=== PATIENT | female | born 1990 | race Caucasian/White ===

== ENCOUNTER 2018-06-14 13:22 | Emergency (ER) | payer MEDICAID ==
[~2018-06-14] VITALS: Ht 162.6 cm; Wt 59.0 kg
[~2018-06-14 13:22] MED LIST: ARIP5TAB49 PO; FURO40TA4 PO; GLUC1KIT2 SUBCUT; INSU100C10 SQ; LABE100T5 PO; LANTUS SQ; LURA60TA2 PO; LYR25C PO; PANT-47 PO; TRAZ-218 PO; VENL-190 PO
[2018-06-14 14:28] LABS: BASOPHILS % (AUTO) 0.3 % (0-1); EOSINOPHILS # (AUTO) 0.1 X10'3 (0-0.9); EOSINOPHILS % (AUTO) 0.5 % (0-6); HEMOGLOBIN 12.3 g/dl (12.0-16.0); LYMPHOCYTES # (AUTO) 2.7 X10'3 (1.1-4.8); LYMPHOCYTES % (AUTO) 19.2 % (21-51); MEAN CORPUSCULAR HGB CONC 33.2 g/dL (33.0-36.5); MEAN CORPUSCULAR VOLUME 87.5 FL (78-98); MEAN PLATELET VOLUME 8.1 FL (7.4-10.4); MONOCYTES # (AUTO) 0.8 X10'3 (0-0.9); MONOCYTES % (AUTO) 5.5 % (2-12); NEUTROPHILS # (AUTO) 10.6 X10'3 (1.8-7.7); NEUTROPHILS % (AUTO) 74.5 % (42-75); PLATELET COUNT 313 X10'3 (140-440); RED BLOOD COUNT 4.22 X10'6 (4.20-5.60); RED CELL DISTRIBUTION WIDTH 15.7 % (11.5-14.5); WHITE BLOOD COUNT 14.2 X10'3 (4.5-11.0)
[2018-06-14 14:37] LABS: CLARITY,URINE CLEAR (Clear); COLOR,URINE YELLOW (Yellow); GLUCOSE, URINE >=1000 mg/dl (Neg); KETONES,URINE TRACE mg/dl (Neg); LEUKOCYTE ESTERASE ,URINE NEGATIVE (Neg); NITRITES, URINE NEGATIVE (Neg); OCCULT BLOOD,URINE NEGATIVE (Neg); PROTEIN,URINE NEGATIVE (Neg)
[2018-06-14 14:38] LABS: URINE HCG NEGATIVE (NEG)
[2018-06-14 14:43] LABS: UA COLLECTION TYPE CLN CATCH MIDSTREAM
[2018-06-14 14:45] LABS: ALANINE AMINOTRANSFERASE 20 U/L (12-78); ALKALINE PHOSPHATASE 103 IU/L (46-116); ANION GAP 12 (8-16); ASPARTATE AMINO TRANSFERASE 13 U/L (10-37); BILIRUBIN,TOTAL 0.3 MG/DL (0.1-1.0); BLOOD UREA NITROGEN 10 MG/DL (7-18); CALCIUM 9.3 MG/DL (8.5-10.1); CHLORIDE 97 MMOL/L (99-107); CREATININE 0.83 MG/DL (0.40-0.90); GLUCOSE 248 MG/DL (70-104); MAGNESIUM 1.7 MG/DL (1.5-2.4); POTASSIUM 3.5 MMOL/L (3.5-5.1); SODIUM 135 MMOL/L (135-145); TOTAL CARBON DIOXIDE 26.2 MMOL/L (24-32); eGFR 81 ML/MIN
[2018-06-14 14:47] LABS: BACTERIA,URINE NONE SEEN /HPF (Neg); RBC,URINE NONE SEEN /HPF (0-2); SQUAMOUS EPITHELIAL CELL,UR FEW /LPF (FEW); WBC,URINE NONE SEEN /HPF (0-4)
[2018-06-14 15:01] LABS: PARTIAL THROMBOPLASTIN TIME 29 SECONDS (22-32); PROTHROMBIN TIME 9.8 SECONDS (9.0-12.0)
[2018-06-14] MEDS ORDERED: pregabalin 75mg capsule PO ONE (15:25)
[2018-06-14] MEDS ORDERED: normal saline 1000ML IV soln IVB ONE (15:30)
[2018-06-14] MEDS ORDERED: HYDR-3973 PO (15:34)
[2018-06-14] MEDS ORDERED: DULO30CA51 PO (15:34)
[2018-06-14] MEDS ORDERED: INSU100I31 SUBCUT (15:34)
[2018-06-14] MEDS ORDERED: DULO60CA64 PO (15:34)
[2018-06-14] MEDS ORDERED: AMIT-189 PO (15:34)
[2018-06-14] MEDS ORDERED: LAMO100T89 PO (15:38)
[2018-06-14] MEDS ORDERED: LURA60TA2 PO (15:39)
[2018-06-14] MEDS ORDERED: ARIP20TA4 PO (15:40)
[2018-06-14 15:48] VITALS: BP 102/61
[2018-06-14] MEDS ORDERED: piperacillin/tazo 3.375gm/50ml 50 ML IV ONE (16:15)
[2018-06-14] MEDS ORDERED: HYDROcodone/acetaminophen 5mg/325mg tablet PO ONE (16:25)
[2018-06-14] MEDS ORDERED: LYR75C PO (16:57)
[2018-06-14] MEDS ORDERED: CEPH-572 PO (16:57)
[2018-06-14] MEDS ORDERED: SULF1TAB49 PO (16:57)
[2018-06-14] MEDS ORDERED: LIDOcaine Viscous 15ml cup MM PRN (18:30)
[2018-06-14] MEDS ORDERED: ibuprofen 100 MG/5 ML oral susp PO ONE (18:30)
== END 2018-06-14 17:34 | disposition home or self-care (01) ==
LOC: ER 13:23
DX: L02.11 Cutaneous abscess of neck (principal); L03.221 Cellulitis of neck; E10.40 Type 1 diabetes mellitus with diabetic neuropathy, unspecified; Z90.89 Acquired absence of other organs; Z79.4 Long term (current) use of insulin; Z79.899 Other long term (current) drug therapy; Z88.8 Allergy status to other drugs, medicaments and biological substances
CPT/HCPCS: 36415; 71045; 80053; 81001; 81025; 82948; 83605; 83735; 84145; 85025; 85610; 85730; 87040; 93005; 96361; 96365; 99284; J2543; J7030

== ENCOUNTER 2018-06-16 10:03 | Emergency (ER) | payer MEDICAID ==
[~2018-06-16] VITALS: Ht 162.6 cm; Wt 54.5 kg
[~2018-06-16 10:03] MED LIST changes: +AMIT-189 PO; +ARIP20TA4 PO; -ARIP5TAB49 PO; +CEPH-572 PO; +DULO30CA51 PO; +DULO60CA64 PO; -FURO40TA4 PO; +HYDR-3973 PO; +INSU100I31 SUBCUT; -LABE100T5 PO; +LAMO100T89 PO; -LANTUS SQ; +LYR75C PO; -PANT-47 PO; +SULF1TAB49 PO; -TRAZ-218 PO; -VENL-190 PO
[2018-06-16 11:28] LABS: BASOPHILS % (AUTO) 0.3 % (0-1); EOSINOPHILS % (AUTO) 0.5 % (0-6); HEMATOCRIT 39.1 % (35.0-45.0); HEMOGLOBIN 12.9 g/dl (12.0-16.0); LYMPHOCYTES # (AUTO) 0.8 X10'3 (1.1-4.8); LYMPHOCYTES % (AUTO) 8.5 % (21-51); MEAN CORPUSCULAR HEMOGLOBIN 29.2 PG (27.0-31.0); MEAN CORPUSCULAR HGB CONC 33.1 g/dL (33.0-36.5); MEAN PLATELET VOLUME 8.3 FL (7.4-10.4); MONOCYTES # (AUTO) 0.4 X10'3 (0-0.9); MONOCYTES % (AUTO) 4.1 % (2-12); NEUTROPHILS # (AUTO) 8.1 X10'3 (1.8-7.7); NEUTROPHILS % (AUTO) 86.6 % (42-75); PLATELET COUNT 276 X10'3 (140-440); RED BLOOD COUNT 4.44 X10'6 (4.20-5.60); RED CELL DISTRIBUTION WIDTH 15.7 % (11.5-14.5); WHITE BLOOD COUNT 9.4 X10'3 (4.5-11.0)
[2018-06-16 11:36] LABS: PROTHROMBIN TIME 9.8 SECONDS (9.0-12.0)
[2018-06-16 11:37] LABS: PARTIAL THROMBOPLASTIN TIME 32 SECONDS (22-32)
[2018-06-16 11:40] LABS: ALANINE AMINOTRANSFERASE 19 U/L (12-78); ALBUMIN 3.9 G/DL (3.4-5.0); ALBUMIN/GLOBULIN RATIO 0.8 (1.1-1.5); ALKALINE PHOSPHATASE 108 IU/L (46-116); ANION GAP 12 (8-16); BILIRUBIN,TOTAL 0.3 MG/DL (0.1-1.0); BLOOD UREA NITROGEN 7 MG/DL (7-18); BUN/CREATININE RATIO 8.4 (6.6-38.0); CALCIUM 9.5 MG/DL (8.5-10.1); CHLORIDE 100 MMOL/L (99-107); CREATININE 0.83 MG/DL (0.40-0.90); GLUCOSE 391 MG/DL (70-104); POTASSIUM 3.9 MMOL/L (3.5-5.1); SODIUM 136 MMOL/L (135-145); TOTAL CARBON DIOXIDE 24.4 MMOL/L (24-32); TOTAL PROTEIN 8.5 G/DL (6.4-8.2); eGFR 81 ML/MIN
[2018-06-16 11:42] LABS: ASPARTATE AMINO TRANSFERASE 15 U/L (10-37)
[2018-06-16] MEDS ORDERED: LIDOcaine 1% w/epiNEPHrine 1:200,000 30ml vial IM ONE (12:15)
[2018-06-16] MEDS ORDERED: morphine 4 MG/ML inj SYRINge IV ONE (12:40)
[2018-06-16] MEDS ORDERED: ondansetron/PF 4mg/2ml inj IV ONE (12:40)
[2018-06-16 13:41] VITALS: BP 116/81
== END 2018-06-16 13:45 | disposition home or self-care (01) ==
LOC: ER 10:03
DX: L02.11 Cutaneous abscess of neck (principal); H92.01 Otalgia, right ear; E11.9 Type 2 diabetes mellitus without complications; Z79.4 Long term (current) use of insulin; Z88.8 Allergy status to other drugs, medicaments and biological substances
CPT/HCPCS: 10060; 36415; 80053; 83605; 84145; 85025; 85610; 85730; 87040; 96374; 96375; 99283; J2270; J2405; J3490

== ENCOUNTER 2019-06-06 17:26 | Inpatient (IN) | payer MEDICAID ==
[~2019-06-06] VITALS: Ht 264.2 cm; Wt 59.0 kg
[~2019-06-06 17:26] MED LIST changes: -CEPH-572 PO; -DULO30CA51 PO; +DULO30CA52 PO; -DULO60CA64 PO; +DULO60CA65 PO; +LAMO100T PO; -LAMO100T89 PO; -SULF1TAB49 PO
[2019-06-06] MEDS ORDERED: normal saline 1000ML IV soln IVB ONE (18:50)
[2019-06-06] MEDS ORDERED: ondansetron/PF 4mg/2ml inj IV ONE (18:50)
[2019-06-06] MEDS ORDERED: pantoprazole 40 MG vial IV ONE (18:50)
[2019-06-06 19:10] LABS: BASOPHILS % (AUTO) 0.2 % (0-1); EOSINOPHILS % (AUTO) 0 % (0-6); HEMATOCRIT 39.3 % (35.0-45.0); HEMOGLOBIN 12.9 g/dl (12.0-16.0); LYMPHOCYTES # (AUTO) 0.9 X10'3 (1.1-4.8); LYMPHOCYTES % (AUTO) 4.5 % (21-51); MEAN CORPUSCULAR HEMOGLOBIN 29.3 PG (27.0-31.0); MEAN CORPUSCULAR HGB CONC 32.7 g/dL (33.0-36.5); MEAN CORPUSCULAR VOLUME 89.5 FL (78-98); MEAN PLATELET VOLUME 8.3 FL (7.4-10.4); MONOCYTES # (AUTO) 0.2 X10'3 (0-0.9); MONOCYTES % (AUTO) 1.1 % (2-12); NEUTROPHILS % (AUTO) 94.2 % (42-75); PLATELET COUNT 377 X10'3 (140-440); RED BLOOD COUNT 4.39 X10'6 (4.20-5.60); RED CELL DISTRIBUTION WIDTH 15.6 % (11.5-14.5); WHITE BLOOD COUNT 21.2 X10'3 (4.5-11.0)
[2019-06-06 19:25] LABS: ALANINE AMINOTRANSFERASE 26 U/L (12-78); ALBUMIN 4.8 G/DL (3.4-5.0); ALBUMIN/GLOBULIN RATIO 1.2 (1.1-1.5); ALKALINE PHOSPHATASE 133 IU/L (46-116); ANION GAP 27 (8-16); ASPARTATE AMINO TRANSFERASE 20 U/L (10-37); BILIRUBIN,TOTAL 0.5 MG/DL (0.1-1.0); BLOOD UREA NITROGEN 18 MG/DL (7-18); BUN/CREATININE RATIO 13.8 (6.6-38.0); CALCIUM 9.9 MG/DL (8.5-10.1); CHLORIDE 98 MMOL/L (99-107); LIPASE < 50 U/L (73-393); POTASSIUM 5.4 MMOL/L (3.5-5.1); SODIUM 134 MMOL/L (135-145); TOTAL PROTEIN 8.9 G/DL (6.4-8.2); eGFR 48 ML/MIN
[2019-06-06 19:26] LABS: GLUCOSE 544 MG/DL (70-104); TOTAL CARBON DIOXIDE 8.7 MMOL/L (24-32)
[2019-06-06 19:26] LABS: ABG BASE EXCESS -20.4 mmol/L (-2.0-3.0); ABG HCO3 6.1 mmol/L (22.0-26.0); ABG OXYGEN SATURATION 97.2 % (95-98); ABG PCO2 (T) 17.3 mmHg (35.0-45.0); ABG PH (T) 7.165 (7.350-7.450); ABG PO2 (T) 107.1 mmHg (83-108); ALLEN'S TEST POSITIVE; FCOHb 0.4 % (0.5-1.5); FMetHb 0.1 % (0.3-1.12); FO2Hb 96.7 % (94-100); TOTAL HEMOGLOBIN 12.8 G/dl (12.0-16.0)
[2019-06-06] MEDS ORDERED: Insulin Reg/NS 100units/100mL 100 ML IV PRN (20:07)
[2019-06-06] MEDS ORDERED: Insulin Reg/NS 100units/100mL 100 ML IV SCH (20:26)
[2019-06-06] MEDS ORDERED: sodium bicarbonate (8.4%) inj. 100 MEQ in dextrose 5% water 500ml 500 ML IV PRN (20:26)
[2019-06-06] MEDS ORDERED: sodium bicarbonate (8.4%) inj. 50 MEQ in dextrose 5% water 500ml 250 ML IV PRN (20:26)
[2019-06-06] MEDS ORDERED: potassium CL 10mEq/100ml bag 100 ML IV PRN ×2 (20:30)
[2019-06-06] MEDS ORDERED: sodium phosphate inj. 15 MMOL in dextrose 5%-water 250 ML IV PRN (20:30)
[2019-06-06] MEDS ORDERED: sodium phosphate inj. 30 MMOL in dextrose 5%-water 250 ML IV PRN (20:30)
[2019-06-06] MEDS ORDERED: Neutra Phos packet PO PRN (20:30)
[2019-06-06] MEDS ORDERED: potassium Cl 20 mEq SR tablet PO PRN (20:30)
[2019-06-06] MEDS ORDERED: insulin regular, human U-100 3ml vial - multi-dose IV PRN (20:30)
[2019-06-06 20:43] LABS: URINE HCG NEGATIVE (NEG)
[2019-06-06 20:45] LABS: CLARITY,URINE CLEAR (Clear); COLOR,URINE STRAW (Yellow); GLUCOSE, URINE 500 mg/dl (Neg); KETONES,URINE >=80 mg/dl (Neg); LEUKOCYTE ESTERASE ,URINE NEGATIVE (Neg); NITRITES, URINE NEGATIVE (Neg); OCCULT BLOOD,URINE SMALL (Neg); PH,URINE 5.5 (4.8-8.0); PROTEIN,URINE NEGATIVE (Neg); UROBILINOGEN,URINE 0.2 E.U/dL (0.2-1.0)
[2019-06-06] MEDS: normal saline 1000ml 1,000 ML IV SCH (20:49)
[2019-06-06 20:51] LABS: UA COLLECTION TYPE CLN CATCH MIDSTREAM
[2019-06-06 20:53] LABS: BACTERIA,URINE NONE SEEN /HPF (Neg); MUCUS STRANDS FEW /LPF (Neg); SQUAMOUS EPITHELIAL CELL,UR FEW /LPF (FEW); WBC,URINE NONE SEEN /HPF (0-4)
[2019-06-06] MEDS ORDERED: LURA40TA3 PO (22:36)
[2019-06-06 22:41] LABS: ALBUMIN 3.8 G/DL (3.4-5.0); ANION GAP 22 (8-16); BLOOD UREA NITROGEN 13 MG/DL (7-18); BUN/CREATININE RATIO 11.6 (6.6-38.0); CALCIUM 8.3 MG/DL (8.5-10.1); CHLORIDE 107 MMOL/L (99-107); CREATININE 1.12 MG/DL (0.40-0.90); GLUCOSE 320 MG/DL (70-104); POTASSIUM 4.8 MMOL/L (3.5-5.1); SODIUM 137 MMOL/L (135-145); eGFR 57 ML/MIN
[2019-06-06] MEDS ORDERED: magnesium hydroxide 30ml (MOM) UD suspension PO PRN (23:35)
[2019-06-06] MEDS ORDERED: normal saline 1000ml 1,000 ML IV SCH (23:35)
[2019-06-06] MEDS ORDERED: mag hydrox/Alum hydrox/simeth 30ml oral suspension PO PRN (23:35)
[2019-06-06] MEDS ORDERED: acetaminophen 325mg tablet PO PRN (23:35)
[2019-06-06] MEDS ORDERED: ondansetron/PF 4mg/2ml inj IV PRN (23:35)
[2019-06-06] MEDS ORDERED: morphine 2 MG/ML inj. syringe IV PRN (23:35)
[2019-06-06] MEDS ORDERED: pregabalin 75mg capsule PO ONE (23:40)
[2019-06-07] MEDS: potassium CL 20mEq in D5-1/2NS 1,000 ML IV PRN ×2 (00:15→06:27)
[2019-06-07] MEDS: normal saline 1000ml 1,000 ML IV SCH ×5 (00:26→23:30)
[2019-06-07 00:58] LABS: BASOPHILS % (AUTO) 0.2 % (0-1); EOSINOPHILS % (AUTO) 0 % (0-6); HEMATOCRIT 31.9 % (35.0-45.0); HEMOGLOBIN 10.7 g/dl (12.0-16.0); LYMPHOCYTES # (AUTO) 2.8 X10'3 (1.1-4.8); LYMPHOCYTES % (AUTO) 13.3 % (21-51); MEAN CORPUSCULAR HEMOGLOBIN 29.4 PG (27.0-31.0); MEAN CORPUSCULAR HGB CONC 33.5 g/dL (33.0-36.5); MEAN CORPUSCULAR VOLUME 87.9 FL (78-98); MEAN PLATELET VOLUME 7.6 FL (7.4-10.4); MONOCYTES # (AUTO) 0.5 X10'3 (0-0.9); MONOCYTES % (AUTO) 2.2 % (2-12); NEUTROPHILS # (AUTO) 17.4 X10'3 (1.8-7.7); NEUTROPHILS % (AUTO) 84.3 % (42-75); PLATELET COUNT 330 X10'3 (140-440); RED BLOOD COUNT 3.63 X10'6 (4.20-5.60); RED CELL DISTRIBUTION WIDTH 15.4 % (11.5-14.5); WHITE BLOOD COUNT 20.7 X10'3 (4.5-11.0)
[2019-06-07 01:15] LABS: ALBUMIN 3.4 G/DL (3.4-5.0); ANION GAP 16 (8-16); BLOOD UREA NITROGEN 13 MG/DL (7-18); BUN/CREATININE RATIO 12.3 (6.6-38.0); CALCIUM 7.8 MG/DL (8.5-10.1); CHLORIDE 106 MMOL/L (99-107); CREATININE 1.06 MG/DL (0.40-0.90); GLUCOSE 195 MG/DL (70-104); PHOSPHORUS 2.7 MG/DL (2.3-4.5); POTASSIUM 4.1 MMOL/L (3.5-5.1); SODIUM 134 MMOL/L (135-145); eGFR 60 ML/MIN
[2019-06-07 01:16] LABS: TOTAL CARBON DIOXIDE 11.9 MMOL/L (24-32)
[2019-06-07 03:19] LABS: ALBUMIN 3.3 G/DL (3.4-5.0); ANION GAP 14 (8-16); BLOOD UREA NITROGEN 10 MG/DL (7-18); BUN/CREATININE RATIO 9.8 (6.6-38.0); CALCIUM 8.2 MG/DL (8.5-10.1); CHLORIDE 108 MMOL/L (99-107); CREATININE 1.02 MG/DL (0.40-0.90); GLUCOSE 191 MG/DL (70-104); SODIUM 135 MMOL/L (135-145); eGFR 63 ML/MIN
[2019-06-07 03:22] LABS: TOTAL CARBON DIOXIDE 13.3 MMOL/L (24-32)
--- NOTE | 2019-06-07 06:20 | NUR ---
RN contacted lab, regenerator operator stated that a outside plant technician will be up to draw 0630 labs.
[2019-06-07 07:26] LABS: ALANINE AMINOTRANSFERASE 23 U/L (12-78); ALBUMIN 3.3 G/DL (3.4-5.0); ALBUMIN/GLOBULIN RATIO 1.1 (1.1-1.5); ALKALINE PHOSPHATASE 88 IU/L (46-116); ANION GAP 11 (8-16); ASPARTATE AMINO TRANSFERASE 27 U/L (10-37); BILIRUBIN,TOTAL 0.3 MG/DL (0.1-1.0); BLOOD UREA NITROGEN 8 MG/DL (7-18); CALCIUM 8.2 MG/DL (8.5-10.1); CHLORIDE 111 MMOL/L (99-107); CREATININE 0.89 MG/DL (0.40-0.90); GLUCOSE 142 MG/DL (70-104); PHOSPHORUS 1.8 MG/DL (2.3-4.5); POTASSIUM 3.9 MMOL/L (3.5-5.1); SODIUM 139 MMOL/L (135-145); TOTAL CARBON DIOXIDE 17.2 MMOL/L (24-32); TOTAL PROTEIN 6.4 G/DL (6.4-8.2); eGFR 74 ML/MIN
[2019-06-07 07:40] VITALS: BP 97/68
--- NOTE | 2019-06-07 07:41 | NUR ---
Patient in room PCU 3014 admitted from ED. I have received report from Luciano NASCIMENTO and had the opportunity to ask questions and assume patient care.
[2019-06-07] MEDS: K and/or MAG REPLACEMENT MC SCH ×2 (08:00→20:00)
[2019-06-07] MEDS: duloxetine 30mg CAPSULE.DR PO SCH ×2 (08:11)
[2019-06-07] MEDS: pregabalin 75mg capsule PO SCH ×2 (08:12→19:50)
[2019-06-07] MEDS: ARIPIPRAZOLE 10 MG TABLET PO SCH (08:12)
[2019-06-07] MEDS: HYDROcodone/acetaminophen 10/325mg tab PO PRN ×3 (08:13→22:34)
[2019-06-07] MEDS: heparin, porcine 5000 units/ml vial SQ SCH ×2 (08:14→19:50)
[2019-06-07 11:00] VITALS: BP 106/70
--- NOTE | 2019-06-07 11:15 | NUR ---
PAGER ID: [phone] MESSAGE: [id number] Navya Crane: Pt is on DKA protocol, Blood glucose is still dropping after D5 1/2NS running at max rate, do you want to change to D10 1/2NS as per protocol? thanks Edmundo
[2019-06-07 11:21] LABS: ALANINE AMINOTRANSFERASE 18 U/L (12-78); ALBUMIN 3.1 G/DL (3.4-5.0); ALKALINE PHOSPHATASE 81 IU/L (46-116); ANION GAP 8 (8-16); ASPARTATE AMINO TRANSFERASE 20 U/L (10-37); BILIRUBIN,TOTAL 0.3 MG/DL (0.1-1.0); BLOOD UREA NITROGEN 6 MG/DL (7-18); BUN/CREATININE RATIO 7.4 (6.6-38.0); CALCIUM 8.1 MG/DL (8.5-10.1); CHLORIDE 113 MMOL/L (99-107); CREATININE 0.81 MG/DL (0.40-0.90); GLUCOSE 75 MG/DL (70-104); POTASSIUM 3.7 MMOL/L (3.5-5.1); SODIUM 140 MMOL/L (135-145); TOTAL CARBON DIOXIDE 19.5 MMOL/L (24-32); TOTAL PROTEIN 6.3 G/DL (6.4-8.2); eGFR 82 ML/MIN
[2019-06-07] MEDS ORDERED: Potassium Cl inj 20 MEQ in DEXTROSE 10 % AND 0.45 % NACL 1,000 ML IV SCH (11:30)
[2019-06-07] MEDS: morphine 2 MG/ML inj. syringe IV PRN ×2 (11:48→20:03)
--- NOTE | 2019-06-07 11:54 | NUR ---
received orders to start hyperglycemia protocol per Dr. Donahue
[2019-06-07] MEDS ORDERED: glucagon, human recombinant 1mg kit SUBCUT PRN (11:55)
[2019-06-07] MEDS ORDERED: dextrose ORAL solution 15 GM/59 ML bottle PO PRN ×2 (11:55)
[2019-06-07] MEDS ORDERED: dextrose 50%-water 50ml dispensing syringe IV PRN ×2 (11:55)
[2019-06-07] MEDS ORDERED: MESSAGE TO PHARMACY PO ONE (11:55)
[2019-06-07 13:35] LABS: ALANINE AMINOTRANSFERASE 16 U/L (12-78); ALBUMIN 3.1 G/DL (3.4-5.0); ALKALINE PHOSPHATASE 82 IU/L (46-116); ANION GAP 15 (8-16); ASPARTATE AMINO TRANSFERASE 17 U/L (10-37); BILIRUBIN,TOTAL 0.3 MG/DL (0.1-1.0); BLOOD UREA NITROGEN 7 MG/DL (7-18); BUN/CREATININE RATIO 10.3 (6.6-38.0); CALCIUM 8.2 MG/DL (8.5-10.1); CHLORIDE 110 MMOL/L (99-107); CREATININE 0.68 MG/DL (0.40-0.90); GLUCOSE 112 MG/DL (70-104); POTASSIUM 3.6 MMOL/L (3.5-5.1); SODIUM 139 MMOL/L (135-145); TOTAL PROTEIN 6.3 G/DL (6.4-8.2); eGFR > 90 ML/MIN
[2019-06-07 13:37] LABS: TOTAL CARBON DIOXIDE 13.8 MMOL/L (24-32)
--- NOTE | 2019-06-07 14:00 | NUR ---
PAGER ID: [phone] MESSAGE: [id number] Navya Crane: KOREY CO2 is 13.8, was previously 19.5, pt is asymptomatic. thanks Edmundo
[2019-06-07] MEDS: insulin Lispro (HumaLOG) vial - multi-dose SQ SCH ×3 (14:12→18:55)
[2019-06-07 18:00] VITALS: BP 102/65
--- NOTE | 2019-06-07 18:13 | NUR ---
Problems reprioritized. Patient report given, questions answered & plan of care reviewed with Zeynep NASCIMENTO.
--- NOTE | 2019-06-07 18:30 | NUR ---
Patient in room PCU 3014. I have received report from PILY Wyatt and had the opportunity to ask questions and assume patient care.
[2019-06-07 20:24] LABS: ALANINE AMINOTRANSFERASE 24 U/L (12-78); ALBUMIN 3.3 G/DL (3.4-5.0); ALKALINE PHOSPHATASE 85 IU/L (46-116); ANION GAP 9 (8-16); ASPARTATE AMINO TRANSFERASE 23 U/L (10-37); BILIRUBIN,TOTAL 0.3 MG/DL (0.1-1.0); BLOOD UREA NITROGEN 6 MG/DL (7-18); BUN/CREATININE RATIO 7.7 (6.6-38.0); CALCIUM 8.8 MG/DL (8.5-10.1); CHLORIDE 111 MMOL/L (99-107); CREATININE 0.78 MG/DL (0.40-0.90); GLUCOSE 102 MG/DL (70-104); POTASSIUM 3.2 MMOL/L (3.5-5.1); SODIUM 141 MMOL/L (135-145); TOTAL CARBON DIOXIDE 20.6 MMOL/L (24-32); TOTAL PROTEIN 6.6 G/DL (6.4-8.2); eGFR 86 ML/MIN
[2019-06-07] MEDS ORDERED: lamoTRIgine 25mg tablet PO SCH (21:00)
[2019-06-07] MEDS ORDERED: lamoTRIgine 100mg tablet PO SCH (21:00)
[2019-06-07] MEDS ORDERED: insulin glargine (Lantus) pen - multi-dose SQ SCH (21:00)
[2019-06-07] MEDS ORDERED: lurasidone 20mg tablet PO SCH (21:00)
[2019-06-07] MEDS ORDERED: normal saline 1000ml 1,000 ML IV ONE (21:35)
[2019-06-07] MEDS ORDERED: magnesium 4gm in 100ml NS 100 ML IV PRN (21:35)
[2019-06-07] MEDS ORDERED: K and/or MAG REPLACEMENT MC SCH (21:35)
[2019-06-07] MEDS ORDERED: magnesium Cl slow-release 64mg tablet PO PRN (21:35)
[2019-06-07] MEDS: potassium Cl 20 mEq SR tablet PO PRN (21:36)
[2019-06-07 22:00] VITALS: BP 110/61
[2019-06-08] MEDS: potassium Cl 20 mEq SR tablet PO PRN (01:40)
[2019-06-08 02:00] VITALS: BP 115/62
[2019-06-08] MEDS: HYDROcodone/acetaminophen 10/325mg tab PO PRN (05:07)
[2019-06-08] MEDS: normal saline 1000ml 1,000 ML IV SCH (05:07)
[2019-06-08 06:00] VITALS: BP 123/70
[2019-06-08 06:10] LABS: BASOPHILS # (AUTO) 0.1 X10'3 (0-0.2); BASOPHILS % (AUTO) 0.5 % (0-1); EOSINOPHILS # (AUTO) 0.1 X10'3 (0-0.9); EOSINOPHILS % (AUTO) 0.9 % (0-6); HEMATOCRIT 30.8 % (35.0-45.0); HEMOGLOBIN 10.4 g/dl (12.0-16.0); LYMPHOCYTES # (AUTO) 4.1 X10'3 (1.1-4.8); LYMPHOCYTES % (AUTO) 34.7 % (21-51); MEAN CORPUSCULAR HEMOGLOBIN 29.5 PG (27.0-31.0); MEAN CORPUSCULAR HGB CONC 33.9 g/dL (33.0-36.5); MEAN PLATELET VOLUME 7.7 FL (7.4-10.4); MONOCYTES # (AUTO) 0.6 X10'3 (0-0.9); MONOCYTES % (AUTO) 5.4 % (2-12); NEUTROPHILS # (AUTO) 6.9 X10'3 (1.8-7.7); NEUTROPHILS % (AUTO) 58.5 % (42-75); PLATELET COUNT 268 X10'3 (140-440); RED BLOOD COUNT 3.54 X10'6 (4.20-5.60); RED CELL DISTRIBUTION WIDTH 16.3 % (11.5-14.5); WHITE BLOOD COUNT 11.9 X10'3 (4.5-11.0)
--- NOTE | 2019-06-08 06:15 | NUR ---
Problems reprioritized. Patient report given, questions answered & plan of care reviewed with PILY Wyatt.
--- NOTE | 2019-06-08 06:19 | NUR ---
Patient in room PCU 3014. I have received report from Zeynep NASCIMENTO and had the opportunity to ask questions and assume patient care.
[2019-06-08 06:30] LABS: ALANINE AMINOTRANSFERASE 18 U/L (12-78); ALBUMIN/GLOBULIN RATIO 0.9 (1.1-1.5); ALKALINE PHOSPHATASE 82 IU/L (46-116); ANION GAP 10 (8-16); ASPARTATE AMINO TRANSFERASE 21 U/L (10-37); BILIRUBIN,TOTAL 0.3 MG/DL (0.1-1.0); BLOOD UREA NITROGEN 5 MG/DL (7-18); BUN/CREATININE RATIO 7.9 (6.6-38.0); CALCIUM 8.5 MG/DL (8.5-10.1); CHLORIDE 110 MMOL/L (99-107); CREATININE 0.63 MG/DL (0.40-0.90); GLUCOSE 205 MG/DL (70-104); MAGNESIUM 1.5 MG/DL (1.5-2.4); PHOSPHORUS 1.8 MG/DL (2.3-4.5); POTASSIUM 3.8 MMOL/L (3.5-5.1); SODIUM 139 MMOL/L (135-145); TOTAL CARBON DIOXIDE 19.4 MMOL/L (24-32); TOTAL PROTEIN 6.3 G/DL (6.4-8.2); eGFR > 90 ML/MIN
[2019-06-08] MEDS: duloxetine 30mg CAPSULE.DR PO SCH ×2 (07:12→07:13)
[2019-06-08] MEDS: ARIPIPRAZOLE 10 MG TABLET PO SCH (07:12)
[2019-06-08] MEDS: heparin, porcine 5000 units/ml vial SQ SCH (07:14)
[2019-06-08] MEDS: pregabalin 75mg capsule PO SCH (07:15)
[2019-06-08] MEDS: K and/or MAG REPLACEMENT MC SCH (07:55)
--- NOTE | 2019-06-08 08:19 | NUR ---
PAGER ID: [phone] MESSAGE: [phone] eulalio Crane: Patient is requesting nicotine patch. thanks alex
[2019-06-08] MEDS: insulin Lispro (HumaLOG) vial - multi-dose SQ SCH (08:28)
[2019-06-08] MEDS ORDERED: pneumococcal 23-VAL P-sac vacc 25 mcg/0.5ml vial IMVAC ONE (10:00)
[2019-06-08] MEDS ORDERED: FLU VACC QS2019-20 36MOS UP/PF 60 MCG/0.5 ML SYRINGE IMVAC ONE (10:00)
--- NOTE | 2019-06-08 10:28 | NUR ---
pt is stable for discharge per md orders, discharge instructions reviewed w/ patient and all questions answered, no new medication prescribed, tele monitor returned, piv dc'ed and clean dry dressing in place, pt discharges to home @ 1015, wheeled down to lobby with RN to private vehicle w/ , all belongings w/ pt at time of discharge.
--- NOTE | 2019-06-08 13:38 | NUR ---
DM/Malnutrition consult. History of type 1 DM for 9 years, several DKAs in the past, peripheral neuropathy. Admitted with DKA, patient reporting symptoms of nausea, vomiting, diarrhea, abdominal pain for 3 weeks. Did not present to ED sooner d/t not liking to be admitted per H&P note. In past admission patient presented passive to RD education. Reports usual blood glucose in the 150s when she is not ill however A1c is 12 which indicates and average blood glucose f 350 mg/dl. Patient discharged prior to RD being available for bed side visit. Written DM education handout with referral to outpatient DM education class on Tuesday and RD contact information mailed to patient's home address found in [employer]. Malnutrition consult: Per documented weight history pt weighed 59 kg (chair scale) last May 2018, current patient stated weight is 59 kg. No edema. Eating 25-45% of carb controlled diet for two meals. Expected poor PO r/t nausea and vomiting associated with DKA. Pt does not meet more than two indicators for malnutrition. Addendum: 06/08/19 at [address] Amended: Links added.
== END 2019-06-08 10:25 | disposition home or self-care (01) | DRG 420 ==
LOC: ER 17:27 → ED HOLD 23:35 → PCU 3S 06-07 07:34
PROVIDERS: ADMIT Internal Medicine; ATTEND Family Medicine
PROC: 3E0234Z Introduction of Serum, Toxoid and Vaccine into Muscle, Percutaneous Approach (ICD-10-PCS; principal; 2019-06-08)
PROC: 3E02340 Introduction of Influenza Vaccine into Muscle, Percutaneous Approach (ICD-10-PCS; 2019-06-08)
DX: E11.10 Type 2 diabetes mellitus with ketoacidosis without coma (principal); G30.9 Alzheimer's disease, unspecified; D72.829 Elevated white blood cell count, unspecified; F02.80 Dementia in other diseases classified elsewhere, unspecified severity, without behavioral disturbance, psychotic disturbance, mood disturbance, and anxiety; E11.40 Type 2 diabetes mellitus with diabetic neuropathy, unspecified; E87.6 Hypokalemia; F11.10 Opioid abuse, uncomplicated; F12.10 Cannabis abuse, uncomplicated; F17.200 Nicotine dependence, unspecified, uncomplicated; F32.9 Major depressive disorder, single episode, unspecified; Z23 Encounter for immunization; Z88.8 Allergy status to other drugs, medicaments and biological substances
CPT/HCPCS: 36415; 36600; 71045; 80048; 80053; 81001; 81025; 82009; 82803; 82948; 83036; 83690; 83735; 84100; 84145; 85018; 85025; 87081; 87502; 87503; 90732; 96374; 96375; 99291; C9113; G0378; J1644; J1815; J2270; J2405; J3480; J7030; Q2037

== ENCOUNTER 2019-07-25 20:06 | Inpatient (IN) | payer MEDICAID ==
[~2019-07-25] VITALS: Ht 162.6 cm; Wt 54.7 kg
[~2019-07-25 20:06] MED LIST changes: -AMIT-189 PO; -LAMO100T PO; +LURA40TA3 PO; -LURA60TA2 PO; -LYR25C PO
[2019-07-25] MEDS ORDERED: normal saline 1000ML IV soln IVB ONE (20:30)
[2019-07-25 20:46] LABS: BASOPHILS # (AUTO) 0.1 X10'3 (0-0.2); BASOPHILS % (AUTO) 0.4 % (0-1); EOSINOPHILS % (AUTO) 0 % (0-6); LYMPHOCYTES # (AUTO) 2.2 X10'3 (1.1-4.8); LYMPHOCYTES % (AUTO) 8.2 % (21-51); MEAN CORPUSCULAR HEMOGLOBIN 28.9 PG (27.0-31.0); MEAN CORPUSCULAR HGB CONC 32.5 g/dL (33.0-36.5); MEAN CORPUSCULAR VOLUME 89.1 FL (78-98); MEAN PLATELET VOLUME 8.6 FL (7.4-10.4); MONOCYTES # (AUTO) 0.4 X10'3 (0-0.9); MONOCYTES % (AUTO) 1.5 % (2-12); NEUTROPHILS # (AUTO) 24.4 X10'3 (1.8-7.7); NEUTROPHILS % (AUTO) 89.9 % (42-75); PLATELET COUNT 333 X10'3 (140-440); RED BLOOD COUNT 4.49 X10'6 (4.20-5.60); RED CELL DISTRIBUTION WIDTH 14.2 % (11.5-14.5)
[2019-07-25 20:49] LABS: WHITE BLOOD COUNT 27.1 X10'3 (4.5-11.0)
[2019-07-25] MEDS ORDERED: normal saline 1000ML IV soln IV ONE (20:55)
[2019-07-25 21:00] LABS: ALANINE AMINOTRANSFERASE 22 U/L (12-78); ALBUMIN 4.2 G/DL (3.4-5.0); ALKALINE PHOSPHATASE 148 IU/L (46-116); ANION GAP 24 (8-16); ASPARTATE AMINO TRANSFERASE 22 U/L (10-37); BILIRUBIN,TOTAL 0.4 MG/DL (0.1-1.0); BLOOD UREA NITROGEN 18 MG/DL (7-18); BUN/CREATININE RATIO 13.8 (6.6-38.0); CALCIUM 8.8 MG/DL (8.5-10.1); CHLORIDE 97 MMOL/L (99-107); GLUCOSE 384 MG/DL (70-104); LIPASE 80 U/L (73-393); POTASSIUM 4.5 MMOL/L (3.5-5.1); SODIUM 132 MMOL/L (135-145); TOTAL PROTEIN 8.4 G/DL (6.4-8.2); eGFR 48 ML/MIN
[2019-07-25] MEDS ORDERED: piperacillin/tazo 3.375gm/50ml 50 ML IV ONE (21:00)
[2019-07-25] MEDS ORDERED: vancomycin/NS 1 GM ADD-VANTAGE 250 ML IV ONE (21:00)
[2019-07-25 21:06] LABS: TOTAL CARBON DIOXIDE 10.7 MMOL/L (24-32)
[2019-07-25] MEDS ORDERED: insulin regular, human 10 units/0.1 ml syringe SQ ONE (21:10)
[2019-07-25 21:15] LABS: PLATELET ESTIMATE NORMAL; TOTAL CELLS COUNTED 100
[2019-07-25] MEDS ORDERED: insulin regular, human U-100 3ml vial - multi-dose SQ ONE (21:15)
[2019-07-25 21:24] LABS: MAGNESIUM 2.1 MG/DL (1.5-2.4)
[2019-07-25 21:26] LABS: PARTIAL THROMBOPLASTIN TIME 26 SECONDS (22-32)
[2019-07-25] MEDS ORDERED: ondansetron/PF 4mg/2ml inj IV ONE (21:35)
[2019-07-25 21:55] LABS: ABG BASE EXCESS -20.2 mmol/L (-2.0-3.0); ABG HCO3 6.8 mmol/L (22.0-26.0); ABG OXYGEN SATURATION 87.4 % (95-98); ABG PCO2 (T) 20.3 mmHg (35.0-45.0); ABG PH (T) 7.144 (7.350-7.450); ABG PO2 (T) 56.5 mmHg (83-108); ALLEN'S TEST POSITIVE; FMetHb 0.3 % (0.3-1.12); FO2Hb 86.3 % (94-100); TOTAL HEMOGLOBIN 13.2 G/dl (12.0-16.0)
[2019-07-25 22:21] LABS: URINE HCG NEGATIVE (NEG)
[2019-07-25 22:26] LABS: CLARITY,URINE CLEAR (Clear); COLOR,URINE STRAW (Yellow); GLUCOSE, URINE 500 mg/dl (Neg); KETONES,URINE >=80 mg/dl (Neg); LEUKOCYTE ESTERASE ,URINE NEGATIVE (Neg); NITRITES, URINE NEGATIVE (Neg); OCCULT BLOOD,URINE TRACE-INTACT (Neg); PH,URINE 5.5 (4.8-8.0); PROTEIN,URINE TRACE mg/dl (Neg); UROBILINOGEN,URINE 0.2 E.U/dL (0.2-1.0)
[2019-07-25 22:27] LABS: URINE AMPHETAMINE SCREEN NEGATIVE (Neg); URINE BARBITUATE SCREEN NEGATIVE (Neg); URINE BENZODIAZEPINES SCREEN NEGATIVE (Neg); URINE CANNABINOID SCREEN POSITIVE (Neg); URINE COCAINE SCREEN NEGATIVE (Neg); URINE METHADONE SCREEN NEGATIVE (Neg); URINE OPIATE SCREEN NEGATIVE (Neg); URINE PHENCYCLIDINE SCREEN NEGATIVE (Neg)
[2019-07-25 22:31] LABS: UA COLLECTION TYPE STRAIGHT CATH
[2019-07-25 22:33] LABS: RBC,URINE 0-2 /HPF (0-2); WBC,URINE NONE SEEN /HPF (0-4)
[2019-07-25 22:34] LABS: BACTERIA,URINE NONE SEEN /HPF (Neg); SQUAMOUS EPITHELIAL CELL,UR FEW /LPF (FEW)
[2019-07-25] MEDS ORDERED: iohexol 300mg/ml 100ml inj. ONE (23:12)
[2019-07-26] VITALS (13 sets, daily range): BP systolic 94–125; BP diastolic 59–86
[2019-07-26] MEDS ORDERED: sodium bicarbonate (8.4%) inj. 100 MEQ in dextrose 5% water 500ml 500 ML IV PRN (00:32)
[2019-07-26] MEDS ORDERED: sodium bicarbonate (8.4%) inj. 50 MEQ in dextrose 5% water 500ml 250 ML IV PRN (00:32)
[2019-07-26] MEDS: normal saline 1000ml 1,000 ML IV SCH ×6 (00:32→19:37)
[2019-07-26] MEDS ORDERED: morphine 4 MG/ML inj SYRINge IV PRN (00:35)
[2019-07-26] MEDS ORDERED: ondansetron/PF 4mg/2ml inj IV PRN (00:35)
[2019-07-26] MEDS ORDERED: acetaminophen 325mg tablet PO PRN ×2 (00:35)
[2019-07-26] MEDS ORDERED: morphine 2 MG/ML inj. syringe IV PRN (00:35)
[2019-07-26] MEDS ORDERED: sodium phosphate inj. 15 MMOL in dextrose 5%-water 250 ML IV PRN (00:35)
[2019-07-26] MEDS: K, MAG and/or Phos replacement - Verify level? MC SCH ×2 (00:35→08:00)
[2019-07-26] MEDS ORDERED: sodium phosphate inj. 30 MMOL in dextrose 5%-water 250 ML IV PRN (00:35)
[2019-07-26] MEDS ORDERED: magnesium hydroxide 30ml (MOM) UD suspension PO PRN (00:35)
[2019-07-26] MEDS ORDERED: potassium CL 10mEq/100ml bag 100 ML IV PRN ×4 (00:35)
[2019-07-26] MEDS ORDERED: potassium Cl 20 mEq SR tablet PO PRN ×4 (00:35)
[2019-07-26] MEDS ORDERED: CLON-513 PO (00:44)
[2019-07-26] MEDS ORDERED: fluconazole 150mg tablet PO ONE (01:00)
[2019-07-26] MEDS: Insulin Reg/NS 100units/100mL 100 ML IV SCH ×2 (02:32→17:27)
[2019-07-26] MEDS: dextrose 5%-1/2 normal saline 1,000 ML IV SCH ×4 (03:13→22:40)
[2019-07-26 03:15] LABS: ALBUMIN 4.1 G/DL (3.4-5.0); ANION GAP 23 (8-16); BLOOD UREA NITROGEN 14 MG/DL (7-18); BUN/CREATININE RATIO 13.2 (6.6-38.0); CALCIUM 8.8 MG/DL (8.5-10.1); CHLORIDE 102 MMOL/L (99-107); CREATININE 1.06 MG/DL (0.40-0.90); GLUCOSE 260 MG/DL (70-104); PHOSPHORUS 3.1 MG/DL (2.3-4.5); POTASSIUM 5.3 MMOL/L (3.5-5.1); SODIUM 135 MMOL/L (135-145); eGFR 60 ML/MIN
[2019-07-26 03:17] LABS: TOTAL CARBON DIOXIDE 10.1 MMOL/L (24-32)
[2019-07-26 05:05] LABS: ALBUMIN 3.6 G/DL (3.4-5.0); ANION GAP 17 (8-16); BLOOD UREA NITROGEN 12 MG/DL (7-18); BUN/CREATININE RATIO 11.4 (6.6-38.0); CALCIUM 8.3 MG/DL (8.5-10.1); CHLORIDE 105 MMOL/L (99-107); CREATININE 1.05 MG/DL (0.40-0.90); GLUCOSE 256 MG/DL (70-104); POTASSIUM 4.5 MMOL/L (3.5-5.1); SODIUM 134 MMOL/L (135-145); eGFR 61 ML/MIN
[2019-07-26 05:07] LABS: TOTAL CARBON DIOXIDE 11.8 MMOL/L (24-32)
--- NOTE | 2019-07-26 05:13 | NUR ---
spoke with Colton ALLISON RE: blood glucose os 242. The protocol requires doubling the insuling gtt and 10 units sub cut. new order for this blood sugar was 10 unit sub cut insulin and keep insulin gtt same rate.
[2019-07-26] MEDS ORDERED: insulin regular, human U-100 3ml vial - multi-dose IV PRN (05:20)
--- NOTE | 2019-07-26 05:59 | NUR ---
DARIUS [phone] . PT HAS OKAY COMMUNICATION
--- NOTE | 2019-07-26 06:24 | NUR ---
Assumed care of patient. Patient resting in bed with eyes closed, respirations even, no distress noted. Patient has Insulin gtt infusing at 5 unit/hr and D5W infusing at 150ml/hr. Awaiting room assignment.
[2019-07-26] MEDS: duloxetine 30mg CAPSULE.DR PO SCH (07:42)
[2019-07-26] MEDS: pregabalin 75mg capsule PO SCH ×2 (07:42→20:37)
[2019-07-26] MEDS: aripiprazole 5mg tablet PO SCH (07:42)
[2019-07-26] MEDS: pantoprazole 40mg Tablet.DR PO SCH (07:43)
[2019-07-26] MEDS: levoFLOXACIN-Levaquin 500mg/D5 100 ML IV SCH (07:46)
[2019-07-26] MEDS ORDERED: non-formulary drug (Duloxetine HCl 1 CAP) PO SCH (08:00)
[2019-07-26] MEDS ORDERED: K and/or MAG REPLACEMENT MC SCH (08:00)
--- NOTE | 2019-07-26 09:15 | NUR ---
Patient arrived to floor from ED and placed on bedside monitor. Patient alert and oriented with stable vital signs. Pt oriented to room.
--- NOTE | 2019-07-26 10:30 | NUR ---
Dr. Armendariz aware of elevated WBC and low pH from ABG, no orders to recheck at this time
[2019-07-26 10:46] LABS: ALBUMIN 3.4 G/DL (3.4-5.0); ANION GAP 13 (8-16); BLOOD UREA NITROGEN 9 MG/DL (7-18); BUN/CREATININE RATIO 10.3 (6.6-38.0); CALCIUM 8.5 MG/DL (8.5-10.1); CHLORIDE 107 MMOL/L (99-107); CREATININE 0.87 MG/DL (0.40-0.90); GLUCOSE 207 MG/DL (70-104); SODIUM 134 MMOL/L (135-145); eGFR 76 ML/MIN
--- NOTE | 2019-07-26 10:46 | NUR ---
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 Pt states she has not taking insulin for at least the last 2 days because she "keeps forgetting" per H&P. Most recent A1c is 12.0 taken at last admit 06/07/19. Pt just admitted today, pending physical assessment at this time. Pt is a poor historian and somnolent on presentation and continues to be so per H&P. Pt with hx DKA, DM education with referral to outpatient CDE course mailed to pt at admit last month d/t pt being discharged prior to RD being available for bedside visit. Pt would benefit from f/u education once stable. Pt currently NPO. LBM 07/24. Will continue to follow closely. Recommendations: 1) Advance to CHO Controlled diet as medically indicated 2) DM education once stable 3) Bowel care PRN 4) Wt per rx Addendum: 07/26/19 at [address] Amended: Links added.
[2019-07-26 10:47] LABS: POTASSIUM 4.2 MMOL/L (3.5-5.1)
[2019-07-26 10:48] LABS: TOTAL CARBON DIOXIDE 13.7 MMOL/L (24-32)
[2019-07-26 12:33] LABS: PHOSPHORUS 2.2 MG/DL (2.3-4.5)
[2019-07-26] MEDS ORDERED: CefTRIAXone 2gm/D5W 50ml 50 ML IV SCH (14:00)
--- NOTE | 2019-07-26 14:13 | NUR ---
DM consult: Patient's admitting dx of DKA has already been addressed, see below. Still pending physical assessment at this time. Per MD notes pt currently not cooperative to answer questions. Noted that a new A1c has been ordered, pending results. Will continue to follow. 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 Pt states she has not taking insulin for at least the last 2 days because she "keeps forgetting" per H&P. Most recent A1c is 12.0 taken at last admit 06/07/19. Pt just admitted today, pending physical assessment at this time. Pt is a poor historian and somnolent on presentation and continues to be so per H&P. Pt with hx DKA, DM education with referral to outpatient CDE course mailed to pt at admit last month d/t pt being discharged prior to RD being available for bedside visit. Pt would benefit from f/u education once stable. Pt currently NPO. LBM 07/24. Will continue to follow closely. Recommendations: 1) Advance to CHO Controlled diet as medically indicated 2) DM education once stable 3) Bowel care PRN 4) Wt per rx Addendum: 07/26/19 at [address] Amended: Links added.
[2019-07-26] MEDS: HYDROcodone/acetaminophen 10/325mg tab PO PRN ×2 (15:47→20:38)
[2019-07-26 16:11] LABS: ALANINE AMINOTRANSFERASE 16 U/L (12-78); ALBUMIN 3.2 G/DL (3.4-5.0); ALBUMIN/GLOBULIN RATIO 0.8 (1.1-1.5); ALKALINE PHOSPHATASE 96 IU/L (46-116); ANION GAP 12 (8-16); ASPARTATE AMINO TRANSFERASE 22 U/L (10-37); BILIRUBIN,TOTAL 0.2 MG/DL (0.1-1.0); BLOOD UREA NITROGEN 6 MG/DL (7-18); BUN/CREATININE RATIO 6.8 (6.6-38.0); CALCIUM 8.7 MG/DL (8.5-10.1); CHLORIDE 108 MMOL/L (99-107); CREATININE 0.88 MG/DL (0.40-0.90); GLUCOSE 137 MG/DL (70-104); PHOSPHORUS 1.7 MG/DL (2.3-4.5); POTASSIUM 3.2 MMOL/L (3.5-5.1); SODIUM 139 MMOL/L (135-145); TOTAL CARBON DIOXIDE 19.3 MMOL/L (24-32); eGFR 75 ML/MIN
[2019-07-26] MEDS ORDERED: dextrose 50%-water 50ml dispensing syringe IV PRN ×2 (16:40)
[2019-07-26] MEDS ORDERED: dextrose ORAL solution 15 GM/59 ML bottle PO PRN ×2 (16:40)
[2019-07-26] MEDS ORDERED: glucagon, human recombinant 1mg kit SUBCUT PRN (16:40)
[2019-07-26] MEDS: Neutra Phos packet PO PRN (16:46)
--- NOTE | 2019-07-26 17:01 | NUR ---
Patient's Anion Gap at 12 and CO2 19.3 and blood sugar trending down below 150. Dr. Armendariz called and per marilynn Aceves to stop DKA protocol and place patient on hyperglycemic protocol. Patient denied nausea until taking PO phosphorous replacement, in which she nearly vomited; Zofran administered. Per marilynn Aceves to decrease Insulin drip to maintain blood sugar between 150-200.
[2019-07-26] MEDS: potassium CL 20mEq in D5-1/2NS 1,000 ML IV PRN ×2 (17:24→23:01)
[2019-07-26] MEDS ORDERED: Insulin Reg/NS 100units/100mL 100 ML IV SCH (18:05)
--- NOTE | 2019-07-26 18:22 | NUR ---
Problems reprioritized. Patient report given, questions answered & plan of care reviewed with MAC RN.
[2019-07-26] MEDS: lactobacillus rhamnosus 10,000 MMU CELLS/CAPSULE PO SCH (20:37)
[2019-07-26] MEDS ORDERED: lurasidone 20mg tablet PO SCH (21:00)
[2019-07-26] MEDS ORDERED: insulin glargine (Lantus) pen - multi-dose SQ SCH (21:00)
[2019-07-27] VITALS (14 sets, daily range): BP systolic 99–121; BP diastolic 65–90
[2019-07-27] MEDS: normal saline 1000ml 1,000 ML IV SCH ×2 (00:32→04:32)
[2019-07-27] MEDS: HYDROcodone/acetaminophen 10/325mg tab PO PRN ×3 (04:40→12:38)
--- NOTE | 2019-07-27 05:00 | NUR ---
RN Note -MD Communication Called March regarding pt ate without nausea, insulin drip has been off since 99, and blood sugar is 171. Received order to transition to subQ coverage
[2019-07-27 05:20] LABS: BASOPHILS % (AUTO) 0.2 % (0-1); EOSINOPHILS # (AUTO) 0.1 X10'3 (0-0.9); EOSINOPHILS % (AUTO) 1.1 % (0-6); HEMATOCRIT 34.5 % (35.0-45.0); HEMOGLOBIN 11.6 g/dl (12.0-16.0); LYMPHOCYTES # (AUTO) 3.7 X10'3 (1.1-4.8); LYMPHOCYTES % (AUTO) 28.9 % (21-51); MEAN CORPUSCULAR HEMOGLOBIN 29.2 PG (27.0-31.0); MEAN CORPUSCULAR HGB CONC 33.5 g/dL (33.0-36.5); MEAN CORPUSCULAR VOLUME 87.2 FL (78-98); MEAN PLATELET VOLUME 8.4 FL (7.4-10.4); MONOCYTES # (AUTO) 0.6 X10'3 (0-0.9); MONOCYTES % (AUTO) 5.1 % (2-12); NEUTROPHILS # (AUTO) 8.3 X10'3 (1.8-7.7); NEUTROPHILS % (AUTO) 64.7 % (42-75); PLATELET COUNT 214 X10'3 (140-440); RED BLOOD COUNT 3.96 X10'6 (4.20-5.60); WHITE BLOOD COUNT 12.8 X10'3 (4.5-11.0)
[2019-07-27 05:25] LABS: ALANINE AMINOTRANSFERASE 16 U/L (12-78); ALBUMIN 2.7 G/DL (3.4-5.0); ALBUMIN/GLOBULIN RATIO 0.8 (1.1-1.5); ALKALINE PHOSPHATASE 83 IU/L (46-116); ANION GAP 9 (8-16); ASPARTATE AMINO TRANSFERASE 19 U/L (10-37); BILIRUBIN,TOTAL 0.2 MG/DL (0.1-1.0); BLOOD UREA NITROGEN 5 MG/DL (7-18); BUN/CREATININE RATIO 7.9 (6.6-38.0); CALCIUM 8.2 MG/DL (8.5-10.1); CHLORIDE 111 MMOL/L (99-107); CREATININE 0.63 MG/DL (0.40-0.90); GLUCOSE 132 MG/DL (70-104); MAGNESIUM 1.5 MG/DL (1.5-2.4); PHOSPHORUS 2.2 MG/DL (2.3-4.5); POTASSIUM 3.6 MMOL/L (3.5-5.1); SODIUM 140 MMOL/L (135-145); TOTAL CARBON DIOXIDE 19.9 MMOL/L (24-32); eGFR > 90 ML/MIN
[2019-07-27] MEDS: dextrose 5%-1/2 normal saline 1,000 ML IV SCH (06:00)
--- NOTE | 2019-07-27 06:15 | NUR ---
Patient in room CICU 2013. I have received report from [facility] and had the opportunity to ask questions and assume patient care.
[2019-07-27] MEDS: K, MAG and/or Phos replacement - Verify level? MC SCH (08:00)
[2019-07-27] MEDS: duloxetine 30mg CAPSULE.DR PO SCH (08:31)
[2019-07-27] MEDS: pantoprazole 40mg Tablet.DR PO SCH (08:32)
[2019-07-27] MEDS: lactobacillus rhamnosus 10,000 MMU CELLS/CAPSULE PO SCH (08:32)
[2019-07-27] MEDS: pregabalin 75mg capsule PO SCH (08:33)
[2019-07-27] MEDS: aripiprazole 5mg tablet PO SCH (08:33)
[2019-07-27] MEDS: Neutra Phos packet PO PRN (08:34)
[2019-07-27] MEDS: levoFLOXACIN-Levaquin 500mg/D5 100 ML IV SCH (08:34)
[2019-07-27] MEDS: insulin Lispro (HumaLOG) vial - multi-dose SQ SCH ×2 (09:25→13:08)
--- NOTE | 2019-07-27 11:44 | NUR ---
Pt asked for morphine several times this am. When norco was offered PT accepted norco but later complained that norco did not relieve shoulder pain. It was explained that MD ordered iv morphine as an alternative to PO medications if PT is vomiting. PT is now tolerating PO food/medications . Tylenol was offered PT refused. It was explained that next norco is due at 1230 and md will be rounding at which time pain will be readdressed. PT did not want to wait and asked for another nurse. Charge went in and spoke to PT offering heat pack to Left knee . PT agreed. MD will be notified.
--- NOTE | 2019-07-27 13:13 | NUR ---
MD becker, PT stated she would like to go. PT VS WNL.
[2019-07-27] MEDS ORDERED: K PH MBDB PO (13:22)
[2019-07-27] MEDS ORDERED: LEVO750T46 PO (13:22)
[2019-07-27] MEDS ORDERED: NAPH MB DB PO (13:22)
--- NOTE | 2019-07-27 15:49 | NUR ---
DM consult: visited patient at bedside and given written DM education handout with verbal review and referral to outpt DM education class. Patient reports was feeling better and in good spirits, says she was diagnosed with Type 1 DM at age 20; saw a CDE and optometry teacher when first diagnosed but not since then. She does have a PCP and has long acting and sliding scale insulin; states she takes the long acting with no issue however sporadically takes the short acting due to terrified of dropping too low and normally has blood glucose around the 300s. States her [facility] doctor referred her to an optometry teacher at [place] just yesterday, needs to follow up. Encouraged patient to seek care from optometry teacher and possibly a CDE to help give her the tools she needs to manage her DM. Addendum: 07/27/19 at [address] Amended: Links added.
[2019-07-28] MEDS ORDERED: levoFLOXACIN 750MG TABLET PO SCH (11:00)
== END 2019-07-27 15:18 | disposition home or self-care (01) | DRG 720 ==
LOC: ER 20:07 → ED HOLD 07-26 00:32 → CANBEDREQ 07-26 00:38 → UNDOADMIN 07-26 01:34 → ED HOLD 07-26 01:34 → CICU 2S 07-26 09:10 → ED HOLD 07-26 09:10
PROVIDERS: ADMIT Internal Medicine Critical Care Medicine; ATTEND Internal Medicine Critical Care Medicine
PROC: BW211ZZ Computerized Tomography (CT Scan) of Abdomen and Pelvis using Low Osmolar Contrast (ICD-10-PCS; principal; 2019-07-26)
DX: A41.9 Sepsis, unspecified organism (principal); N17.9 Acute kidney failure, unspecified; E10.10 Type 1 diabetes mellitus with ketoacidosis without coma; G30.9 Alzheimer's disease, unspecified; E83.39 Other disorders of phosphorus metabolism; E87.1 Hypo-osmolality and hyponatremia; F02.80 Dementia in other diseases classified elsewhere, unspecified severity, without behavioral disturbance, psychotic disturbance, mood disturbance, and anxiety; Z20.828 Contact with and (suspected) exposure to other viral communicable diseases; F12.90 Cannabis use, unspecified, uncomplicated; F32.9 Major depressive disorder, single episode, unspecified; R65.20 Severe sepsis without septic shock; F17.210 Nicotine dependence, cigarettes, uncomplicated; S83.8X2A Sprain of other specified parts of left knee, initial encounter; X58.XXXA Exposure to other specified factors, initial encounter; Y93.89 Activity, other specified; Z79.4 Long term (current) use of insulin; Z88.8 Allergy status to other drugs, medicaments and biological substances; Z90.89 Acquired absence of other organs; Z91.14 Patient's other noncompliance with medication regimen; Y92.89 Other specified places as the place of occurrence of the external cause; Y99.8 Other external cause status
CPT/HCPCS: 36415; 36600; 71045; 74177; 80048; 80053; 80305; 81001; 81025; 82803; 82948; 83605; 83690; 83735; 84100; 84145; 85018; 85025; 85610; 85730; 87040; 87081; 87210; 87635; 93005; 96365; 96368; 96372; 96375; 99291; G0378; J0696; J1815; J1956; J2270; J2405; J2543; J3370; J3480; J7030; J7060; Q9967

== ENCOUNTER 2019-09-29 11:17 | Inpatient (IN) | payer MEDICAID ==
[2019-09-29] VITALS (8 sets, daily range): BP systolic 98–112; BP diastolic 58–78
[~2019-09-29] VITALS: Ht 162.6 cm; Wt 49.0 kg
[~2019-09-29 11:17] MED LIST changes: +AMIT100T61 PO; -GLUC1KIT2 SUBCUT; -LYR75C PO; +PREG225C PO
[2019-09-29] MEDS ORDERED: normal saline 1000ML IV soln IVB ONE ×2 (11:40→12:40)
[2019-09-29] MEDS ORDERED: insulin regular, human 10 units/0.1 ml syringe IV ONE (11:40)
[2019-09-29] MEDS ORDERED: insulin regular, human U-100 3ml vial - multi-dose IV ONE (12:00)
[2019-09-29] MEDS ORDERED: metoclopramide 5 mg/ml inj IV ONE (12:00)
[2019-09-29 12:16] LABS: BASOPHILS # (AUTO) 0.1 X10'3 (0-0.2); BASOPHILS % (AUTO) 0.2 % (0-1); EOSINOPHILS % (AUTO) 0 % (0-6); HEMATOCRIT 42.5 % (35.0-45.0); LYMPHOCYTES # (AUTO) 2.3 X10'3 (1.1-4.8); LYMPHOCYTES % (AUTO) 7.2 % (21-51); MEAN CORPUSCULAR HEMOGLOBIN 27.7 PG (27.0-31.0); MEAN CORPUSCULAR HGB CONC 30.5 g/dL (33.0-36.5); MEAN CORPUSCULAR VOLUME 90.7 FL (78-98); MEAN PLATELET VOLUME 8.8 FL (7.4-10.4); MONOCYTES # (AUTO) 1.6 X10'3 (0-0.9); MONOCYTES % (AUTO) 5.2 % (2-12); NEUTROPHILS # (AUTO) 27.6 X10'3 (1.8-7.7); NEUTROPHILS % (AUTO) 87.4 % (42-75); PLATELET COUNT 386 X10'3 (140-440); RED BLOOD COUNT 4.69 X10'6 (4.20-5.60)
[2019-09-29 12:18] LABS: WHITE BLOOD COUNT 31.5 X10'3 (4.5-11.0)
[2019-09-29 12:22] LABS: URINE HCG NEGATIVE (NEG)
[2019-09-29 12:26] LABS: CLARITY,URINE SLIGHTLY CLOUDY (Clear); COLOR,URINE STRAW (Yellow); GLUCOSE, URINE >=1000 mg/dl (Neg); KETONES,URINE >=80 mg/dl (Neg); LEUKOCYTE ESTERASE ,URINE NEGATIVE (Neg); NITRITES, URINE NEGATIVE (Neg); OCCULT BLOOD,URINE SMALL (Neg); PH,URINE 5.5 (4.8-8.0); PROTEIN,URINE 30 mg/dl (Neg); UROBILINOGEN,URINE 0.2 E.U/dL (0.2-1.0)
[2019-09-29 12:28] LABS: UA COLLECTION TYPE STRAIGHT CATH
[2019-09-29 12:29] LABS: URINE AMPHETAMINE SCREEN NEGATIVE (Neg); URINE BARBITUATE SCREEN NEGATIVE (Neg); URINE BENZODIAZEPINES SCREEN NEGATIVE (Neg); URINE CANNABINOID SCREEN POSITIVE (Neg); URINE COCAINE SCREEN NEGATIVE (Neg); URINE METHADONE SCREEN NEGATIVE (Neg); URINE OPIATE SCREEN POSITIVE (Neg); URINE PHENCYCLIDINE SCREEN NEGATIVE (Neg)
[2019-09-29 12:33] LABS: ALANINE AMINOTRANSFERASE 26 U/L (12-78); ALBUMIN 3.8 G/DL (3.4-5.0); ALBUMIN/GLOBULIN RATIO 0.8 (1.1-1.5); ALKALINE PHOSPHATASE 137 IU/L (46-116); BILIRUBIN,TOTAL 0.5 MG/DL (0.1-1.0); BLOOD UREA NITROGEN 36 MG/DL (7-18); BUN/CREATININE RATIO 23.1 (6.6-38.0); CALCIUM 8.8 MG/DL (8.5-10.1); CHLORIDE 93 MMOL/L (99-107); CREATININE 1.56 MG/DL (0.40-0.90); MAGNESIUM 2.3 MG/DL (1.5-2.4); SODIUM 128 MMOL/L (135-145); TOTAL PROTEIN 8.7 G/DL (6.4-8.2); eGFR 39 ML/MIN
[2019-09-29 12:35] LABS: AMORPHOUS URATES 2+; BACTERIA,URINE FEW /HPF (Neg); MUCUS STRANDS NONE SEEN /LPF (Neg); RBC,URINE 0-2 /HPF (0-2); SQUAMOUS EPITHELIAL CELL,UR FEW /LPF (FEW); WBC,URINE 0-4 /HPF (0-4)
[2019-09-29] MEDS ORDERED: Insulin Reg/NS 100units/100mL 100 ML IV ONE (12:40)
[2019-09-29 12:43] LABS: ANION GAP 30 (8-16)
[2019-09-29 12:44] LABS: ASPARTATE AMINO TRANSFERASE 26 U/L (10-37)
[2019-09-29 12:47] LABS: ETHANOL < 0.010 GM/DL (0.0-0.010); GLUCOSE 583 MG/DL (70-104)
[2019-09-29] MEDS ORDERED: Insulin Reg/NS 100units/100mL 100 ML IV SCH (12:54)
[2019-09-29] MEDS ORDERED: potassium CL 20mEq in D5-1/2NS 1,000 ML IV PRN (12:54)
[2019-09-29] MEDS ORDERED: dextrose ORAL solution 15 GM/59 ML bottle PO PRN ×2 (12:55)
[2019-09-29] MEDS ORDERED: MESSAGE TO PHARMACY PO ONE (12:55)
[2019-09-29] MEDS ORDERED: sodium phosphate inj. 30 MMOL in dextrose 5%-water 250 ML IV PRN (12:55)
[2019-09-29] MEDS ORDERED: dextrose 50%-water 50ml dispensing syringe IV PRN ×2 (12:55)
[2019-09-29] MEDS ORDERED: sodium phosphate inj. 15 MMOL in dextrose 5%-water 250 ML IV PRN (12:55)
[2019-09-29] MEDS ORDERED: glucagon, human recombinant 1mg kit SUBCUT PRN (12:55)
[2019-09-29] MEDS ORDERED: acetaminophen 325mg tablet PO PRN ×2 (12:55)
[2019-09-29] MEDS ORDERED: morphine 2 MG/ML inj. syringe IV PRN (12:55)
[2019-09-29] MEDS ORDERED: potassium Cl 20 mEq SR tablet PO PRN ×4 (12:55)
[2019-09-29] MEDS ORDERED: Neutra Phos packet PO PRN (12:55)
[2019-09-29] MEDS ORDERED: morphine 4 MG/ML inj SYRINge IV PRN (12:55)
[2019-09-29] MEDS ORDERED: LIDOcaine 2% 10ml TOPICAL JELLY (Urojet) TP ONE (12:55)
[2019-09-29] MEDS ORDERED: potassium CL 10mEq/100ml bag 100 ML IV PRN ×2 (12:55)
[2019-09-29] MEDS ORDERED: ondansetron/PF 4mg/2ml inj IV PRN (12:55)
[2019-09-29 12:58] LABS: TOTAL CELLS COUNTED 100
[2019-09-29 12:59] LABS: ANISOCYTOSIS 1+; BURR CELLS 1+; PLATELET ESTIMATE NORMAL
[2019-09-29 13:33] LABS: ALBUMIN 3.8 G/DL (3.4-5.0); ANION GAP 27 (8-16); BLOOD UREA NITROGEN 34 MG/DL (7-18); BUN/CREATININE RATIO 22.5 (6.6-38.0); CALCIUM 8.5 MG/DL (8.5-10.1); CHLORIDE 101 MMOL/L (99-107); CREATININE 1.51 MG/DL (0.40-0.90); GLUCOSE 437 MG/DL (70-104); SODIUM 134 MMOL/L (135-145); eGFR 40 ML/MIN
[2019-09-29 13:35] LABS: PHOSPHORUS 4.5 MG/DL (2.3-4.5)
[2019-09-29 13:39] LABS: TOTAL CARBON DIOXIDE 5.7 MMOL/L (24-32)
[2019-09-29] MEDS ORDERED: HYDROcodone/acetaminophen 10/325mg tab PO PRN (13:45)
[2019-09-29] MEDS ORDERED: non-formulary drug (Insulin Lispro (Humalog) 1 UNITS) SQ PRN (13:45)
[2019-09-29] MEDS ORDERED: insulin Lispro (HumaLOG) vial - multi-dose SQ PRN (13:58)
[2019-09-29] MEDS: normal saline 1000ml 1,000 ML IV SCH ×2 (14:25→19:34)
[2019-09-29 15:29] LABS: ALBUMIN 2.8 G/DL (3.4-5.0); ANION GAP 23 (8-16); BLOOD UREA NITROGEN 26 MG/DL (7-18); BUN/CREATININE RATIO 24.8 (6.6-38.0); CALCIUM 6.8 MG/DL (8.5-10.1); CHLORIDE 110 MMOL/L (99-107); CREATININE 1.05 MG/DL (0.40-0.90); GLUCOSE 254 MG/DL (70-104); PHOSPHORUS 2.5 MG/DL (2.3-4.5); POTASSIUM 3.5 MMOL/L (3.5-5.1); SODIUM 140 MMOL/L (135-145); eGFR 61 ML/MIN
--- NOTE | 2019-09-29 15:30 | NUR ---
Received report from Tangela NASCIMENTO who got report from ER. Will assess patient when she arrives.
[2019-09-29 15:38] LABS: TOTAL CARBON DIOXIDE 6.9 MMOL/L (24-32)
--- NOTE | 2019-09-29 16:00 | NUR ---
Per Dr. Funk set patient's insulin at 5 units/ hour and leave it alone, titrate D5W1/2 NS to keep sugar stable and do not stop insulin drip. Will continue to monitor.
[2019-09-29] MEDS ORDERED: DEXTROSE 5% IV PRN (16:22)
[2019-09-29] MEDS ORDERED: 1/4 NS IV PRN (16:22)
[2019-09-29] MEDS ORDERED: dextrose 5%-1/2 normal saline 1,000 ML IV PRN (16:32)
[2019-09-29] MEDS ORDERED: insulin glargine (Lantus) pen - multi-dose SQ SCH (18:00)
--- NOTE | 2019-09-29 18:00 | NUR ---
Notified Dr. Funk that 3 nurses and 2 carpenter/labor attempted to get labs ordered in last hour. Requested a central line and was told no someone can get it. Notified night nurse. Will continue to monitor.
--- NOTE | 2019-09-29 18:46 | NUR ---
Problems reprioritized. Patient report given, questions answered & plan of care reviewed with Vianney NASCIMENTO.
[2019-09-29 19:24] LABS: ANION GAP 17 (8-16); BLOOD UREA NITROGEN 21 MG/DL (7-18); BUN/CREATININE RATIO 17.8 (6.6-38.0); CALCIUM 7.5 MG/DL (8.5-10.1); CHLORIDE 111 MMOL/L (99-107); CREATININE 1.18 MG/DL (0.40-0.90); GLUCOSE 191 MG/DL (70-104); POTASSIUM 3.2 MMOL/L (3.5-5.1); SODIUM 142 MMOL/L (135-145); eGFR 53 ML/MIN
[2019-09-29 19:29] LABS: PHOSPHORUS 1.1 MG/DL (2.3-4.5); TOTAL CARBON DIOXIDE 13.8 MMOL/L (24-32)
[2019-09-29] MEDS: K and/or MAG REPLACEMENT MC SCH (20:00)
[2019-09-29] MEDS: pregabalin 75mg capsule PO SCH (20:00)
[2019-09-29] MEDS: docusate sod 100mg capsule PO SCH (20:00)
[2019-09-29] MEDS: lurasidone 20mg tablet PO SCH ×2 (20:29→21:00)
[2019-09-29] MEDS: duloxetine 30mg CAPSULE.DR PO SCH ×2 (20:31→21:00)
[2019-09-29] MEDS: potassium CL 10mEq/100ml bag 100 ML IV PRN ×2 (20:42→21:24)
[2019-09-29] MEDS: heparin, porcine 5000 units/ml vial SQ SCH (20:48)
[2019-09-29] MEDS: sennosides/docusate sodium tablet PO SCH (20:49)
[2019-09-29 23:54] LABS: ALBUMIN 2.6 G/DL (3.4-5.0); ANION GAP 15 (8-16); BLOOD UREA NITROGEN 16 MG/DL (7-18); BUN/CREATININE RATIO 18.6 (6.6-38.0); CALCIUM 7.4 MG/DL (8.5-10.1); CHLORIDE 113 MMOL/L (99-107); CREATININE 0.86 MG/DL (0.40-0.90); GLUCOSE 157 MG/DL (70-104); MAGNESIUM 1.4 MG/DL (1.5-2.4); SODIUM 142 MMOL/L (135-145); eGFR 77 ML/MIN
[2019-09-29 23:58] LABS: PHOSPHORUS 0.8 MG/DL (2.3-4.5); POTASSIUM 2.6 MMOL/L (3.5-5.1); TOTAL CARBON DIOXIDE 14.4 MMOL/L (24-32)
[2019-09-30] VITALS (19 sets, daily range): BP systolic 85–113; BP diastolic 53–77
--- NOTE | 2019-09-30 00:07 | NUR ---
jefry labs at 1830- potassium noted to be 3.1. Gave IV potassium x3 then rechecked labs at 2300. Potassium dropped to 2.6. KEEGAN Umanzor notified. I asked if I could switch her to D5 1/2 NS with potassium and was told no, just to keep running the 10meq via IV. I do not have a central line to run a higher concentration and patient is refusing PO medications. CAMPAIGN ASSOCIATE and charge nurse aware of situation. I will continue to give potassium IV, draw labs, and monitor.
[2019-09-30] MEDS: potassium CL 10mEq/100ml bag 100 ML IV PRN ×13 (00:15→19:45)
[2019-09-30] MEDS: normal saline 1000ml 1,000 ML IV SCH ×2 (02:14→08:54)
--- NOTE | 2019-09-30 03:03 | NUR ---
0250- Dr. Funk at bedside to speak to me about patients potassium. I received an order for D5 1/2 NS with 20meq of potassium at 150 and do not titrate. Order placed for fluids.
[2019-09-30] MEDS: potassium CL 20mEq in D5-1/2NS 1,000 ML IV PRN ×2 (04:07→10:04)
--- NOTE | 2019-09-30 05:40 | NUR ---
patient extremely uncooperative with blood sugar sticks. pulls arms away and tucks them under her body every time I try to get a finger stick. She has fought back every single time I've had to check her blood sugar despite continuos re-education on why I need to check her blood sugar.
--- NOTE | 2019-09-30 06:30 | NUR ---
Patient in room ICU 2039. I have received report from Vianney NASCIMENTO and had the opportunity to ask questions and assume patient care.
[2019-09-30] MEDS: K and/or MAG REPLACEMENT MC SCH ×2 (08:00→20:00)
[2019-09-30] MEDS ORDERED: ARIPIPRAZOLE 10 MG TABLET PO SCH (08:00)
[2019-09-30] MEDS ORDERED: amitriptyline 50mg tablet PO SCH (08:00)
[2019-09-30] MEDS: docusate sod 100mg capsule PO SCH ×2 (08:00→19:59)
[2019-09-30] MEDS: heparin, porcine 5000 units/ml vial SQ SCH ×2 (08:00→20:00)
[2019-09-30] MEDS ORDERED: duloxetine 30mg CAPSULE.DR PO SCH (08:00)
[2019-09-30] MEDS: pregabalin 75mg capsule PO SCH ×2 (08:50→20:09)
[2019-09-30 09:08] LABS: BASOPHILS % (AUTO) 0.2 % (0-1); EOSINOPHILS % (AUTO) 0 % (0-6); HEMATOCRIT 30.4 % (35.0-45.0); LYMPHOCYTES # (AUTO) 1.1 X10'3 (1.1-4.8); LYMPHOCYTES % (AUTO) 5.4 % (21-51); MEAN CORPUSCULAR HEMOGLOBIN 27.9 PG (27.0-31.0); MEAN CORPUSCULAR HGB CONC 32.9 g/dL (33.0-36.5); MEAN CORPUSCULAR VOLUME 84.9 FL (78-98); MEAN PLATELET VOLUME 8.1 FL (7.4-10.4); MONOCYTES # (AUTO) 1.1 X10'3 (0-0.9); MONOCYTES % (AUTO) 5.7 % (2-12); NEUTROPHILS # (AUTO) 17.3 X10'3 (1.8-7.7); NEUTROPHILS % (AUTO) 88.7 % (42-75); PLATELET COUNT 242 X10'3 (140-440); RED BLOOD COUNT 3.58 X10'6 (4.20-5.60); RED CELL DISTRIBUTION WIDTH 15.5 % (11.5-14.5); WHITE BLOOD COUNT 19.5 X10'3 (4.5-11.0)
[2019-09-30 09:13] LABS: ALANINE AMINOTRANSFERASE 16 U/L (12-78); ALBUMIN 2.5 G/DL (3.4-5.0); ALBUMIN/GLOBULIN RATIO 0.8 (1.1-1.5); ALKALINE PHOSPHATASE 81 IU/L (46-116); ANION GAP 12 (8-16); ASPARTATE AMINO TRANSFERASE 16 U/L (10-37); BILIRUBIN,TOTAL 0.3 MG/DL (0.1-1.0); BLOOD UREA NITROGEN 10 MG/DL (7-18); BUN/CREATININE RATIO 13.9 (6.6-38.0); CALCIUM 7.5 MG/DL (8.5-10.1); CHLORIDE 110 MMOL/L (99-107); CREATININE 0.72 MG/DL (0.40-0.90); GLUCOSE 114 MG/DL (70-104); POTASSIUM 3.1 MMOL/L (3.5-5.1); SODIUM 138 MMOL/L (135-145); TOTAL CARBON DIOXIDE 15.6 MMOL/L (24-32); TOTAL PROTEIN 5.5 G/DL (6.4-8.2); eGFR > 90 ML/MIN
[2019-09-30 09:28] LABS: MAGNESIUM 1.3 MG/DL (1.5-2.4); PHOSPHORUS 1.5 MG/DL (2.3-4.5)
[2019-09-30] MEDS ORDERED: insulin glargine (Lantus) pen - multi-dose SQ SCH (09:45)
[2019-09-30] MEDS: HYDROcodone/acetaminophen 10/325mg tab PO PRN ×2 (10:13→19:45)
[2019-09-30] MEDS ORDERED: insulin glargine (Lantus) pen - multi-dose SQ ONE ×2 (10:20→21:00)
[2019-09-30] MEDS ORDERED: D5-1/2NS w/20 mEq potassium per 1000ml IV SCH (10:25)
[2019-09-30] MEDS ORDERED: insulin Lispro (HumaLOG) vial - multi-dose SQ SCH (10:25)
[2019-09-30] MEDS ORDERED: potassium CL 20mEq in D5-1/2NS 1,000 ML IV SCH (10:35)
--- NOTE | 2019-09-30 13:27 | NUR ---
Inquired if Dr. Funk wanted Mag or phos replaced, states no I want her to eat. Will continue to encourage
[2019-09-30 13:36] LABS: ALANINE AMINOTRANSFERASE 17 U/L (12-78); ALBUMIN 2.5 G/DL (3.4-5.0); ALBUMIN/GLOBULIN RATIO 0.8 (1.1-1.5); ALKALINE PHOSPHATASE 83 IU/L (46-116); ANION GAP 10 (8-16); ASPARTATE AMINO TRANSFERASE 12 U/L (10-37); BILIRUBIN,TOTAL 0.3 MG/DL (0.1-1.0); BLOOD UREA NITROGEN 6 MG/DL (7-18); BUN/CREATININE RATIO 8.3 (6.6-38.0); CALCIUM 7.7 MG/DL (8.5-10.1); CHLORIDE 111 MMOL/L (99-107); CREATININE 0.72 MG/DL (0.40-0.90); GLUCOSE 126 MG/DL (70-104); POTASSIUM 3.9 MMOL/L (3.5-5.1); SODIUM 138 MMOL/L (135-145); TOTAL CARBON DIOXIDE 16.8 MMOL/L (24-32); TOTAL PROTEIN 5.7 G/DL (6.4-8.2); eGFR > 90 ML/MIN
--- NOTE | 2019-09-30 16:43 | NUR ---
Patient in room ICU 2039. I have received report from Kaye NASCIMENTO and had the opportunity to ask questions and assume patient care.
--- NOTE | 2019-09-30 17:10 | NUR ---
Escorted patient in wheelchair to telemetry floor with tele monitor on. She is alert but still easily distracted. Belongings and medications transported as well. Sanjuana NASCIMENTO received patient at this time. Report had been called prior and she was ready to accept care.
--- NOTE | 2019-09-30 17:20 | NUR ---
DM consult, A1c 12, was 12.4 09/24/19; Previously seen by SHASHI 07/27/19 at that time patient was given a written DM education handout with verbal review and she had reported dx of type 1 DM at age 20 and had seen a CDE and tool design draftsperson when first diagnosed but notn since, stated having a PCP and has long acting and sliding scale insulin; reported "she takes the long acting with no issue however sporadically takes the short acting due to terrified of dropping too low and normally has blood glucose around the 300s" and at that time said her [facility] doctor referred her to an tool design draftsperson at [place]. Presently admitted with DKA. Has carb controlled diet, not wanting to eat. Will follow up with patient regarding referral to tool design draftsperson and provide additional reinforcement of DM education prior to discharge. Recommend: 1. continue carb controlled diet 2. encourage PO Intake 3. bowel care routine 4. weight per rx Addendum: 09/30/19 at [address] Amended: Links added.
--- NOTE | 2019-09-30 18:17 | NUR ---
Patient in room PCU 3023. I have received report from Sanjuana NASCIMENTO and had the opportunity to ask questions and assume patient care.
--- NOTE | 2019-09-30 18:27 | NUR ---
Problems reprioritized. Patient report given, questions answered & plan of care reviewed with Arlene NASCIMENTO. Patient stable at transfer of care.
[2019-09-30 19:42] LABS: ALANINE AMINOTRANSFERASE 14 U/L (12-78); ALBUMIN 2.4 G/DL (3.4-5.0); ALBUMIN/GLOBULIN RATIO 0.8 (1.1-1.5); ALKALINE PHOSPHATASE 79 IU/L (46-116); ANION GAP 10 (8-16); ASPARTATE AMINO TRANSFERASE 15 U/L (10-37); BILIRUBIN,TOTAL 0.4 MG/DL (0.1-1.0); BLOOD UREA NITROGEN 4 MG/DL (7-18); CALCIUM 8.2 MG/DL (8.5-10.1); CHLORIDE 113 MMOL/L (99-107); CREATININE 0.67 MG/DL (0.40-0.90); GLUCOSE 117 MG/DL (70-104); POTASSIUM 3.3 MMOL/L (3.5-5.1); SODIUM 143 MMOL/L (135-145); TOTAL CARBON DIOXIDE 19.8 MMOL/L (24-32); TOTAL PROTEIN 5.4 G/DL (6.4-8.2); eGFR > 90 ML/MIN
[2019-09-30] MEDS: sennosides/docusate sodium tablet PO SCH (20:00)
[2019-09-30] MEDS: duloxetine 30mg CAPSULE.DR PO SCH (20:09)
--- NOTE | 2019-09-30 20:24 | NUR ---
Patient was complaining of severe burning to IV site with IV Potassium administration and was refusing any further IV replacement so will replace PO which she had agreed to and will start replacement based on her new level that was 3.3.
--- NOTE | 2019-09-30 21:30 | NUR ---
Patient left A at this time. She refused the remainder of her night time medications including her Lantus and for me to recheck her blood sugar. She was in her room yelling that she needed to leave now because her ride is here and it was her only chance. She was educated on the fact that she still has some abnormal lab levels and is not in a stable condition to leave but she insists to leave anyway against medical advice. She did sign the ANGUI[facility]A paperwork. Colton Umanzor was notified. PIVs were removed and patient was taken off of tele and she ambulated out independently.
[2019-10-01] MEDS ORDERED: insulin glargine (Lantus) pen - multi-dose SQ SCH (08:00)
== END 2019-09-30 21:32 | disposition left against medical advice (07) | DRG 420 ==
LOC: ER 11:18 → ED HOLD 12:54 → ICU 2S 15:30 → PCU 3S 09-30 17:10
PROVIDERS: ADMIT Internal Medicine Critical Care Medicine; ATTEND Internal Medicine Critical Care Medicine
DX: E10.10 Type 1 diabetes mellitus with ketoacidosis without coma (principal); F32.9 Major depressive disorder, single episode, unspecified; Z53.29 Procedure and treatment not carried out because of patient's decision for other reasons; Z88.8 Allergy status to other drugs, medicaments and biological substances; Z79.4 Long term (current) use of insulin; Z82.0 Family history of epilepsy and other diseases of the nervous system; Z87.891 Personal history of nicotine dependence
CPT/HCPCS: 36415; 71045; 80048; 80053; 80305; 80320; 81001; 81025; 82009; 82800; 82948; 83036; 83735; 84100; 85025; 87081; 93005; 97116; 97161; 99291; G0378; J1644; J1815; J2270; J2405; J2765; J3480; J7030; J7060

== ENCOUNTER → 2019-10-01 | Day surgery (SDC) | payer MEDICAID ==
[2019-09-24 14:02] LABS: BASOPHILS # (AUTO) 0.1 X10'3 (0-0.2); BASOPHILS % (AUTO) 0.8 % (0-1); EOSINOPHILS # (AUTO) 0.2 X10'3 (0-0.9); EOSINOPHILS % (AUTO) 1.6 % (0-6); LYMPHOCYTES % (AUTO) 28.8 % (21-51); MEAN CORPUSCULAR HEMOGLOBIN 27.6 PG (27.0-31.0); MEAN CORPUSCULAR HGB CONC 32.4 g/dL (33.0-36.5); MEAN CORPUSCULAR VOLUME 85.3 FL (78-98); MEAN PLATELET VOLUME 8.5 FL (7.4-10.4); MONOCYTES # (AUTO) 0.7 X10'3 (0-0.9); NEUTROPHILS # (AUTO) 8.9 X10'3 (1.8-7.7); NEUTROPHILS % (AUTO) 63.8 % (42-75); PRE OP PLATELET COUNT 239 X10'3 (140-440); RED BLOOD COUNT 4.34 X10'6 (4.20-5.60); RED CELL DISTRIBUTION WIDTH 15.3 % (11.5-14.5)
[2019-09-24 14:15] LABS: ALBUMIN 3.9 G/DL (3.4-5.0); ALKALINE PHOSPHATASE 120 IU/L (46-116); BLOOD UREA NITROGEN 7 MG/DL (7-18); BUN/CREATININE RATIO 9.6 (6.6-38.0); CALCIUM 9.4 MG/DL (8.5-10.1); CHLORIDE 102 MMOL/L (99-107); CREATININE 0.73 MG/DL (0.40-0.90); PRE OP ALT 20 U/L (30-65); PRE OP ANION GAP 6 (8-16); PRE OP AST 13 U/L (10-37); PRE OP BILIRUB, TOTAL 0.3 MG/DL (0.0-1.0); PRE OP GLUCOSE 174 MG/DL (70-104); PRE OP POTASSIUM 3.4 MMOL/L (3.4-5.1); PRE OP SODIUM 138 MMOL/L (135-145); TOTAL CARBON DIOXIDE 30.4 MMOL/L (24-32); TOTAL PROTEIN 7.8 G/DL (6.4-8.2); eGFR > 90 ML/MIN
[2019-09-24 14:40] LABS: HEMOGLOBIN A1C 12.4 % (4.5-6.2)
[~2019-10-01] VITALS: Ht 162.6 cm; Wt 59.0 kg
[~2019-10-01] MED LIST changes: +BUPIVAcaine/PF 2.5 mg/ml (0.25%) 30ml vial ONE; +famotidine 20mg tablet PO ONE; +ringers solution, lacted 1,000 ML IV SCH
== END | disposition home or self-care (01) ==
LOC: PAS 06:27
PROVIDERS: ATTEND Orthopaedic Surgery
DX: M19.111 Post-traumatic osteoarthritis, right shoulder (principal); Z53.8 Procedure and treatment not carried out for other reasons; M25.311 Other instability, right shoulder; E10.42 Type 1 diabetes mellitus with diabetic polyneuropathy; F43.10 Post-traumatic stress disorder, unspecified; F32.9 Major depressive disorder, single episode, unspecified; F17.210 Nicotine dependence, cigarettes, uncomplicated; Z11.59 Encounter for screening for other viral diseases; Z79.899 Other long term (current) drug therapy; Z88.8 Allergy status to other drugs, medicaments and biological substances; Z79.4 Long term (current) use of insulin
CPT/HCPCS: 36415; 80053; 83036; 85025; J3490; U0003; J7120

== ENCOUNTER 2019-12-30 20:25 | Inpatient (IN) | payer MEDICAID ==
[~2019-12-30] VITALS: Ht 167.6 cm; Wt 50.0 kg
[~2019-12-30 20:25] MED LIST changes: -BUPIVAcaine/PF 2.5 mg/ml (0.25%) 30ml vial ONE; -famotidine 20mg tablet PO ONE; -ringers solution, lacted 1,000 ML IV SCH
[2019-12-30] MEDS ORDERED: normal saline 1000ML IV soln IV ONE (20:40)
[2019-12-30 20:57] LABS: BASOPHILS # (AUTO) 0.1 X10'3 (0-0.2); BASOPHILS % (AUTO) 0.5 % (0-1); EOSINOPHILS % (AUTO) 0 % (0-6); HEMATOCRIT 37.8 % (35.0-45.0); HEMOGLOBIN 12.5 g/dl (12.0-16.0); LYMPHOCYTES # (AUTO) 3.4 X10'3 (1.1-4.8); LYMPHOCYTES % (AUTO) 15.7 % (21-51); MEAN CORPUSCULAR HEMOGLOBIN 28.1 PG (27.0-31.0); MEAN CORPUSCULAR HGB CONC 32.9 g/dL (33.0-36.5); MEAN CORPUSCULAR VOLUME 85.4 FL (78-98); MEAN PLATELET VOLUME 8.4 FL (7.4-10.4); MONOCYTES # (AUTO) 0.9 X10'3 (0-0.9); NEUTROPHILS # (AUTO) 17.3 X10'3 (1.8-7.7); NEUTROPHILS % (AUTO) 79.8 % (42-75); PLATELET COUNT 276 X10'3 (140-440); RED BLOOD COUNT 4.43 X10'6 (4.20-5.60); WHITE BLOOD COUNT 21.7 X10'3 (4.5-11.0)
[2019-12-30 21:09] LABS: ALANINE AMINOTRANSFERASE 28 U/L (12-78); ALBUMIN 4.1 G/DL (3.4-5.0); ALBUMIN/GLOBULIN RATIO 0.9 (1.1-1.5); ALKALINE PHOSPHATASE 103 IU/L (46-116); ANION GAP 21 (8-16); ASPARTATE AMINO TRANSFERASE 19 U/L (10-37); BILIRUBIN,TOTAL 0.4 MG/DL (0.1-1.0); BLOOD UREA NITROGEN 27 MG/DL (7-18); CALCIUM 9.1 MG/DL (8.5-10.1); CHLORIDE 99 MMOL/L (99-107); GLUCOSE 316 MG/DL (70-104); LIPASE 72 U/L (73-393); MAGNESIUM 2.3 MG/DL (1.5-2.4); POTASSIUM 4.1 MMOL/L (3.5-5.1); SODIUM 131 MMOL/L (135-145); TOTAL PROTEIN 8.5 G/DL (6.4-8.2); eGFR 41 ML/MIN
[2019-12-30 21:16] LABS: TOTAL CARBON DIOXIDE 10.8 MMOL/L (24-32)
[2019-12-30 21:35] LABS: ABG BASE EXCESS -12.2 mmol/L (-2.0-2.0); ABG HCO3 12.8 mmol/L (22.0-26.0); ABG PCO2 (T) 27.2 mmHg (32.0-45.0); ABG PO2 (T) 102.6 mmHg (75.0-100.0); ALLEN'S TEST POSITIVE; FCOHb 0.3 % (0.0-3.9); FMetHb 0.3 % (0.0-1.5); FO2Hb 97.4 % (94-97); TOTAL HEMOGLOBIN 12.4 G/dl (12.0-16.0)
[2019-12-30] MEDS ORDERED: normal saline 1000ML IV soln IVB ONE (21:55)
[2019-12-30 22:09] LABS: ETHANOL < 0.010 GM/DL (0.0-0.010)
[2019-12-30 22:09] LABS: URINE HCG NEGATIVE (NEG)
[2019-12-30 22:14] LABS: CLARITY,URINE CLOUDY (Clear); COLOR,URINE YELLOW (Yellow); GLUCOSE, URINE 500 mg/dl (Neg); KETONES,URINE >=80 mg/dl (Neg); LEUKOCYTE ESTERASE ,URINE NEGATIVE (Neg); NITRITES, URINE NEGATIVE (Neg); OCCULT BLOOD,URINE LARGE (Neg); PH,URINE 5.5 (4.8-8.0); PROTEIN,URINE 30 mg/dl (Neg); UROBILINOGEN,URINE 0.2 E.U/dL (0.2-1.0)
[2019-12-30] MEDS ORDERED: insulin regular, human 10 units/0.1 ml syringe SQ ONE (22:20)
[2019-12-30 22:25] LABS: UA COLLECTION TYPE STRAIGHT CATH; URINE BARBITUATE SCREEN NEGATIVE (Neg); URINE BENZODIAZEPINES SCREEN POSITIVE (Neg); URINE CANNABINOID SCREEN POSITIVE (Neg); URINE COCAINE SCREEN NEGATIVE (Neg); URINE METHADONE SCREEN NEGATIVE (Neg); URINE OPIATE SCREEN POSITIVE (Neg); URINE PHENCYCLIDINE SCREEN NEGATIVE (Neg)
[2019-12-30 22:28] LABS: SQUAMOUS EPITHELIAL CELL,UR MANY /LPF (FEW)
[2019-12-30 22:29] LABS: AMORPHOUS URATES 4+; BACTERIA,URINE 3+ /HPF (Neg); MUCUS STRANDS MODERATE /LPF (Neg)
[2019-12-30 22:38] LABS: URINE AMPHETAMINE SCREEN NEGATIVE (Neg)
[2019-12-30] MEDS ORDERED: Insulin Reg/NS 100units/100mL 100 ML IV PRN (23:35)
[2019-12-30] MEDS ORDERED: dextrose 50%-water 50ml dispensing syringe IV PRN ×2 (23:40)
[2019-12-30] MEDS ORDERED: glucagon, human recombinant 1mg kit SUBCUT PRN (23:40)
[2019-12-30] MEDS ORDERED: dextrose ORAL solution 15 GM/59 ML bottle PO PRN ×2 (23:40)
[2019-12-31] MEDS ORDERED: potassium Cl 20 mEq SR tablet PO PRN ×2 (00:25)
[2019-12-31] MEDS ORDERED: Neutra Phos packet PO PRN (00:25)
[2019-12-31] MEDS ORDERED: sodium bicarbonate (8.4%) inj. 50 MEQ in dextrose 5% water 500ml 250 ML IV PRN (00:25)
[2019-12-31] MEDS ORDERED: morphine 2 MG/ML inj. syringe IV PRN ×2 (00:25)
[2019-12-31] MEDS ORDERED: acetaminophen 325mg tablet PO PRN ×2 (00:25)
[2019-12-31] MEDS ORDERED: potassium CL 20mEq in D5-1/2NS 1,000 ML IV PRN ×2 (00:25)
[2019-12-31] MEDS ORDERED: mag hydrox/Alum hydrox/simeth 30ml oral suspension PO PRN (00:25)
[2019-12-31] MEDS ORDERED: potassium CL 10mEq/100ml bag 100 ML IV PRN ×2 (00:25)
[2019-12-31] MEDS ORDERED: sodium phosphate inj. 15 MMOL in dextrose 5%-water 250 ML IV PRN (00:25)
[2019-12-31] MEDS ORDERED: HYDROcodone/acetaminophen 5mg/325mg tablet PO PRN (00:25)
[2019-12-31] MEDS ORDERED: sodium phosphate inj. 30 MMOL in dextrose 5%-water 250 ML IV PRN (00:25)
[2019-12-31] MEDS ORDERED: magnesium hydroxide 30ml (MOM) UD suspension PO PRN (00:25)
[2019-12-31] MEDS: normal saline 1000ml 1,000 ML IV SCH ×2 (00:25→00:55)
[2019-12-31] MEDS ORDERED: normal saline 1000ml 1,000 ML IV SCH ×2 (00:25)
[2019-12-31] MEDS ORDERED: ondansetron/PF 4mg/2ml inj IV PRN (00:25)
[2019-12-31] MEDS ORDERED: insulin regular, human U-100 3ml vial - multi-dose IV PRN (00:25)
[2019-12-31] MEDS ORDERED: sodium bicarbonate (8.4%) inj. 100 MEQ in dextrose 5% water 500ml 500 ML IV PRN (00:25)
--- NOTE | 2019-12-31 04:50 | NUR ---
Patient in room ED 12. I have received report from Argelia NASCIMENTO and had the opportunity to ask questions and assume patient care.
[2019-12-31 04:53] LABS: ALBUMIN 3.4 G/DL (3.4-5.0); ANION GAP 11 (8-16); BLOOD UREA NITROGEN 16 MG/DL (7-18); BUN/CREATININE RATIO 15.5 (6.6-38.0); CALCIUM 8.1 MG/DL (8.5-10.1); CHLORIDE 106 MMOL/L (99-107); CREATININE 1.03 MG/DL (0.40-0.90); GLUCOSE 144 MG/DL (70-104); POTASSIUM 3.7 MMOL/L (3.5-5.1); SODIUM 136 MMOL/L (135-145); TOTAL CARBON DIOXIDE 18.8 MMOL/L (24-32); eGFR 63 ML/MIN
--- NOTE | 2019-12-31 06:17 | NUR ---
Problems reprioritized. Patient report given, questions answered & plan of care reviewed with Holly NASCIMENTO.
[2019-12-31] MEDS ORDERED: dextrose 50%-water 50ml dispensing syringe IV PRN ×2 (06:45)
[2019-12-31] MEDS ORDERED: MESSAGE TO PHARMACY PO ONE (06:45)
[2019-12-31] MEDS ORDERED: dextrose ORAL solution 15 GM/59 ML bottle PO PRN ×2 (06:45)
[2019-12-31] MEDS ORDERED: glucagon, human recombinant 1mg kit SUBCUT PRN (06:45)
[2019-12-31 07:00] VITALS: BP 93/67
[2019-12-31] MEDS: HYDROcodone/acetaminophen 10/325mg tab PO PRN ×2 (07:46→13:10)
[2019-12-31] MEDS ORDERED: K and/or MAG REPLACEMENT MC SCH (08:00)
[2019-12-31] MEDS: insulin Lispro (HumaLOG) vial - multi-dose SQ SCH ×2 (08:19→13:12)
[2019-12-31 08:47] LABS: BASOPHILS # (AUTO) 0.1 X10'3 (0-0.2); BASOPHILS % (AUTO) 0.3 % (0-1); EOSINOPHILS % (AUTO) 0.3 % (0-6); HEMATOCRIT 32.9 % (35.0-45.0); HEMOGLOBIN 10.9 g/dl (12.0-16.0); LYMPHOCYTES # (AUTO) 2.3 X10'3 (1.1-4.8); LYMPHOCYTES % (AUTO) 12.9 % (21-51); MEAN CORPUSCULAR HEMOGLOBIN 27.9 PG (27.0-31.0); MEAN CORPUSCULAR HGB CONC 33.1 g/dL (33.0-36.5); MEAN CORPUSCULAR VOLUME 84.1 FL (78-98); MEAN PLATELET VOLUME 8.1 FL (7.4-10.4); MONOCYTES # (AUTO) 1.4 X10'3 (0-0.9); MONOCYTES % (AUTO) 7.7 % (2-12); NEUTROPHILS # (AUTO) 14.2 X10'3 (1.8-7.7); NEUTROPHILS % (AUTO) 78.8 % (42-75); PLATELET COUNT 234 X10'3 (140-440); RED BLOOD COUNT 3.91 X10'6 (4.20-5.60); RED CELL DISTRIBUTION WIDTH 15.3 % (11.5-14.5); WHITE BLOOD COUNT 18.1 X10'3 (4.5-11.0)
[2019-12-31] MEDS ORDERED: pregabalin 75mg capsule PO SCH (10:50)
[2019-12-31] MEDS ORDERED: amitriptyline 50mg tablet PO SCH (10:50)
[2019-12-31] MEDS ORDERED: ARIPIPRAZOLE 10 MG TABLET PO SCH (10:50)
[2019-12-31] MEDS ORDERED: duloxetine 30mg CAPSULE.DR PO SCH (10:56)
[2019-12-31 11:00] VITALS: BP 91/63
[2019-12-31 11:24] LABS: ALBUMIN 3.5 G/DL (3.4-5.0); ANION GAP 14 (8-16); BLOOD UREA NITROGEN 13 MG/DL (7-18); BUN/CREATININE RATIO 15.5 (6.6-38.0); CALCIUM 8.4 MG/DL (8.5-10.1); CHLORIDE 105 MMOL/L (99-107); CREATININE 0.84 MG/DL (0.40-0.90); GLUCOSE 141 MG/DL (70-104); POTASSIUM 3.8 MMOL/L (3.5-5.1); SODIUM 136 MMOL/L (135-145); TOTAL CARBON DIOXIDE 17.3 MMOL/L (24-32); eGFR 79 ML/MIN
[2019-12-31 15:00] VITALS: BP 94/64
--- NOTE | 2019-12-31 16:45 | NUR ---
Page sent to Dr. Sharpe: PAGER ID: [phone] MESSAGE: [phone] Navya Crane: Last blood glucose was 137mg/dL. Next BMP will be drawn at 1700. Patient is wondering if she can go home tonight? Thank you, Holly [phone] Addendum: 12/31/19 at 1647 by Holly Wells RN Dr. Sharpe said it depends on the result of BMP.
[2019-12-31 18:00] VITALS: BP 101/73
[2019-12-31 18:21] LABS: ALBUMIN 3.2 G/DL (3.4-5.0); ANION GAP 10 (8-16); BLOOD UREA NITROGEN 10 MG/DL (7-18); BUN/CREATININE RATIO 10.8 (6.6-38.0); CALCIUM 8.2 MG/DL (8.5-10.1); CHLORIDE 107 MMOL/L (99-107); CREATININE 0.93 MG/DL (0.40-0.90); GLUCOSE 148 MG/DL (70-104); POTASSIUM 3.4 MMOL/L (3.5-5.1); SODIUM 137 MMOL/L (135-145); TOTAL CARBON DIOXIDE 19.7 MMOL/L (24-32); eGFR 70 ML/MIN
--- NOTE | 2019-12-31 18:30 | NUR ---
PAGED DR. NELSON Page Sent promotional table spacer PAGER ID: [phone] MESSAGE: [id number] - ROCIO MONTANO 31/ - ADMIT DKA 1700 LAB CMP RESULTED FOR PENDING DISCHARGE. CO2 19.7 FROM 17.3 TRENDING UP. K+ 3.4 DOWN FROM 3.8. GAP 10 FROM 14. [phone] JACKELIN NASCIMENTO
--- NOTE | 2019-12-31 18:36 | NUR ---
Problems reprioritized. Patient report given, questions answered & plan of care reviewed with Eleazar RN.
[2019-12-31] MEDS ORDERED: POTA20TA10 PO (18:39)
[2019-12-31] MEDS ORDERED: lurasidone 20mg tablet PO SCH (21:00)
[2019-12-31] MEDS ORDERED: insulin glargine (Lantus) pen - multi-dose SQ SCH (21:00)
[2020-01-01] MEDS ORDERED: duloxetine 30mg CAPSULE.DR PO SCH (08:00)
== END 2019-12-31 20:00 | disposition home or self-care (01) | DRG 420 ==
LOC: ER 20:26 → ED HOLD 12-31 00:22 → PCU 3S 12-31 05:44
PROVIDERS: ADMIT Internal Medicine; ATTEND Family Medicine
DX: E10.10 Type 1 diabetes mellitus with ketoacidosis without coma (principal); F32.9 Major depressive disorder, single episode, unspecified; G30.9 Alzheimer's disease, unspecified; F02.80 Dementia in other diseases classified elsewhere, unspecified severity, without behavioral disturbance, psychotic disturbance, mood disturbance, and anxiety; N17.0 Acute kidney failure with tubular necrosis; D72.823 Leukemoid reaction; E86.0 Dehydration; E87.6 Hypokalemia; E87.1 Hypo-osmolality and hyponatremia; Z88.8 Allergy status to other drugs, medicaments and biological substances; Z79.899 Other long term (current) drug therapy
CPT/HCPCS: 36415; 36600; 80048; 80053; 80305; 80320; 81001; 81025; 82009; 82803; 82948; 83605; 83690; 83735; 84100; 84145; 85018; 85025; 87040; 87081; 87088; 96372; 99285; G0378; J1815; J3480; J7030

== ENCOUNTER 2021-05-31 16:29 | Emergency (ER) | payer MEDICAID ==
[~2021-05-31] VITALS: Ht 160 cm; Wt 50.0 kg
[~2021-05-31 16:29] MED LIST changes: -DULO30CA52 PO; +LURA40TA2 PO; -LURA40TA3 PO; +POTA-197 PO
[2021-05-31] MEDS ORDERED: normal saline 1000ML IV soln IVB ONE (16:50)
[2021-05-31] MEDS ORDERED: ondansetron/PF 4mg/2ml inj IV ONE (16:55)
[2021-05-31 17:42] LABS: BASOPHILS % (AUTO) 0.4 % (0-1); EOSINOPHILS # (AUTO) 0.1 X10'3 (0-0.9); EOSINOPHILS % (AUTO) 1.1 % (0-6); HEMATOCRIT 25.5 % (35.0-45.0); HEMOGLOBIN 8.1 g/dl (12.0-16.0); LYMPHOCYTES % (AUTO) 30.1 % (21-51); MEAN CORPUSCULAR HEMOGLOBIN 23.4 PG (27.0-31.0); MEAN CORPUSCULAR HGB CONC 31.7 g/dL (33.0-36.5); MEAN CORPUSCULAR VOLUME 73.8 FL (78-98); MEAN PLATELET VOLUME 8.3 FL (7.4-10.4); MONOCYTES # (AUTO) 0.6 X10'3 (0-0.9); NEUTROPHILS # (AUTO) 6.2 X10'3 (1.8-7.7); NEUTROPHILS % (AUTO) 62.4 % (42-75); PLATELET COUNT 460 X10'3 (140-440); RED BLOOD COUNT 3.45 X10'6 (4.20-5.60); RED CELL DISTRIBUTION WIDTH 17.6 % (11.5-14.5); WHITE BLOOD COUNT 9.9 X10'3 (4.5-11.0)
[2021-05-31 18:44] LABS: ALANINE AMINOTRANSFERASE 10 U/L (12-78); ALBUMIN 2.2 G/DL (3.4-5.0); ALBUMIN/GLOBULIN RATIO 0.4 (1.1-1.5); ALKALINE PHOSPHATASE 108 IU/L (46-116); ANION GAP 6 (8-16); ASPARTATE AMINO TRANSFERASE 12 U/L (10-37); BILIRUBIN,TOTAL 0.2 MG/DL (0.1-1.0); BLOOD UREA NITROGEN 17 MG/DL (7-18); CALCIUM 8.3 MG/DL (8.5-10.1); CHLORIDE 103 MMOL/L (99-107); CREATININE 0.68 MG/DL (0.40-0.90); GLUCOSE 169 MG/DL (70-104); POTASSIUM 3.6 MMOL/L (3.5-5.1); SODIUM 136 MMOL/L (135-145); TOTAL CARBON DIOXIDE 26.6 MMOL/L (24-32); TOTAL PROTEIN 7.8 G/DL (6.4-8.2); eGFR > 90 ML/MIN
[2021-05-31 18:51] LABS: MAGNESIUM 2.1 MG/DL (1.5-2.4); PHOSPHORUS 3.2 MG/DL (2.3-4.5)
[2021-05-31 19:25] VITALS: BP 103/73
== END 2021-05-31 19:28 | disposition home or self-care (01) ==
LOC: ER 16:30
DX: R11.2 Nausea with vomiting, unspecified (principal); E11.9 Type 2 diabetes mellitus without complications; I10 Essential (primary) hypertension; F12.10 Cannabis abuse, uncomplicated; Z79.899 Other long term (current) drug therapy
CPT/HCPCS: 36415; 80053; 82948; 83735; 84100; 85025; 93005; 96361; 96374; 99284; J2405; J7030